=== PATIENT | male | born 1940 | race Caucasian/White ===

== ENCOUNTER 2016-10-26 09:54 | Inpatient (IN) | payer MEDICARE, BC ==
--- NOTE | ~2016-10-26 | OP ---
Record Of Operation [facility] [address] [place]. [address] NAME: HAMILTON NGUYEN JR : 38 STATUS : ADM IN PAT#: [id number] AGE: 76 ADM/REG DATE : 10/26/16 MR#: [id number] REPORT SERV DATE: 10/26/16 DICTATED BY: STEVEN PANG DATE: 10/26/16 REPORT STATUS : Draft TRANSCRIBED BY: BETTY DATE: 10/26/16 DATE OF PROCEDURE: 10/26/2016 TIME: 1600 hours. PROCEDURE: Ultrasound guided right-sided Thoracentesis INDICATION: Large right-sided pleural effusion. PROCEDURE DULSER: Steven Pang PA-C. CONSENT: Consent was obtained from the patient prior to the procedure. Diagnostic and therapeutic indications for thoracentesis were discussed as well as risks including life- threatening bleeding, pneumothorax, and even the possible necessity of chest tube placement. Benefits and alternatives were explained at length. Prior to the procedure, imaging studies were reviewed with Dr. Robbins who agreed with the indication to proceed with thoracentesis. PROCEDURE SUMMARY: A time out was performed verifying correct patient, procedure, site, and positioning. The patient's right side was prepped and draped in a sterile manner using chlorhexidine scrub after the appropriate level was percussed and confirmed by ultrasound. U/S images were obtained and placed within the chart. 2% lidocaine with epinephrine was then used to anesthetize the region. A finder needle was then used to aspirate dorinda-colored fluid. A 10-blade scalpel was then used to make a small incision. The thoracentesis catheter was then threaded into the pleural space without difficulty. The patient had 1100 mL of dorinda-colored fluid removed. No immediate complications were noted during the procedure. A post-procedure chest x-ray is pending at the time of this dictation. The fluid will be sent for several studies. There was difficulty aspirating the complete volume of the pleural effusion raising the question of possible lung entrapment. ESTIMATED BLOOD LOSS: Minimal. JOSUÉ/BETTY Steven Pang PA-C / [id number] CC: Margarita Arguelles DO
--- NOTE | ~2016-10-26 | DS ---
Discharge Summary [facility] [address] [facility] [address] [place]. [address] NAME: HAMILTON NGUYEN JR : 39 STATUS : ADM IN [facility]#: [id number] AGE: 76 ADM/REG DATE : 10/26/16 MR#: [id number] REPORT SERV DATE: 10/30/16 DICTATED BY: Javier MARTINEZ DATE: 10/30/16 REPORT STATUS : Draft TRANSCRIBED BY: MODL DATE: 10/30/16 ADMISSION DATE: 10/26/2016 DISCHARGE DATE: 10/30/2016 DIAGNOSES: At time of this interim summary: 1. Acute on chronic hypoxic respiratory failure. 2. Complex pleural effusion on the right status post chest tube placement and infusion of thrombolytics. 3. Pneumonia, present on admission, resolving. 4. Chronic obstructive pulmonary disease. 5. Oropharyngeal dysphagia with current Dobbhoff tube placement. CONSULTS: Pulmonology. PROCEDURES: Thoracentesis on the right as well as chest tube placement on the right. Intra- pulmonary space thrombolytics x2. BRIEF HOSPITAL COURSE: This is a 76-year-old male patient with complex pleural effusion, was admitted with hypoxic respiratory failure. Started on broad-spectrum antimicrobial therapy. Seen on admission by the Pulmonary Service, and initially underwent ultrasound-guided thoracentesis with removal of 1.1 L of dorinda-colored fluid. Studies showed that this was exudative, as result Cardiothoracic Surgery was involved. Their recommendations were for placement of a chest tube and likely pleural-based thrombolytics to enhance drainage. The patient did undergo ultrasound-guided chest tube placement, and had roughly 2 L of additional fluid removed. Since chest tube was placed, he has had pleural space probable lytics administered on two separate occasions with enhancement of the drainage procedure. The patient's lab work has steadily improved. Unfortunately because of an old CVA and his currently ill-state, the patient did fail a bedside swallow evaluation. As a result, the Dobbhoff tube has been placed and tube feedings have been started tentatively planning to reassess the swallowing the first of the week on either Wednesday or Wednesday, and hopefully he will be able to tolerate p.o. at that time. The patient had previously been on Plavix. The Plavix was held for his chest tube placement and thoracentesis. In the interim, we will continue to hold Plavix until it is clear that he either can swallow and take p.o. or that he may need a feeding tube placed, and if he needs a PEG tube, we will place that before restarting Plavix. The patient continues to be followed closely by the Pulmonary Service and the Hospitalist Service, and will be managed by another member of the hospitalist team for this week and with ongoing comanagement from Pulmonology. LABORATORY DATA: Significant lab work at the time of this interim summary shows a white count of 14.7, and decreasing; hemoglobin is 13.9; and platelets are 189. Sodium 143, potassium is 5.4, BUN is 45, and creatinine is 0.98. Further pathologic studies from his fluid are pending as well as the culture data. These will need to be reassessed when available. Discharge Summary [address] [place]. [address] NAME: HAMILTON NGUYEN JR : 38 STATUS : ADM IN [facility]#: [id number] AGE: 76 ADM/REG DATE : 10/26/16 MR#: [id number] REPORT SERV DATE: 10/30/16 DICTATED BY: Javier MARTINEZ DATE: 10/30/16 REPORT STATUS : Draft TRANSCRIBED BY: BETTY DATE: 10/30/16 [facility]/BETTY Javier Martinez M.D. / [id number] CC: Margarita Arguelles DO
--- NOTE | ~2016-10-26 | OP ---
Record Of Operation [facility] [address] [address] NAME: HAMILTON NGUYEN JR : 38 STATUS : ADM IN PAT#: [id number] AGE: 76 ADM/REG DATE : 10/26/16 MR#: [id number] REPORT SERV DATE: 11/02/16 DICTATED BY: STEVEN PANG DATE: 11/02/16 REPORT STATUS : Draft TRANSCRIBED BY: MODL DATE: 11/02/16 DATE OF PROCEDURE: 11/02/2016 TIME: Noon. PROCEDURE: Intrapleural instillation of fibrinolytics INDICATION: Empyema/Loculated pleural effusion/Pleurx PROCEDURE TEST PILOT: Nick Pang PA-C CONSENT: Consent was obtained from the patient prior to the procedure. The indication for instillation of intrapleural fibrinolytics was discussed with the patient. Risks including pain, life-threatening bleeding, hemoptysis and possible surgical intervention were reviewed. Benefits and alternatives were explained at length. The patient voiced understanding and wished to proceed. Preceding the procedure, imaging studies were reviewed with Dr. Sanchez who agreed with the indication to proceed with lytic therapy. PROCEDURE SUMMARY: Prior to starting the procedure, a time out was performed verifying correct patient, procedure, site, and positioning. Please note that 10 mg of tPA in 50 mL of normal saline as well as 5 mg of DNAse were prepared in sterile fashion by Pharmacy and brought to the bedside. The patient was then positioned accordingly and a sterile field was created. The chest tube connections were prepped in a sterile manner. The tPA and the DNAse were then injected into the chest tube. No immediate complications were noted during the procedure. The chest tube will be placed back on suction in 2 hours with a portable chest x-ray to follow. ESTIMATED BLOOD LOSS: None. GBS/MODL Steven Pang PA-C / [id number] CC: MD Richardson Fowler II, DO
--- NOTE | ~2016-10-26 | CN ---
Consultation Report [address] [place]. [address] NAME: MIRZA MACE JR : 39 STATUS : ADM IN PAT#: [id number] AGE: 76 ADM/REG DATE : 10/26/16 MR#: [id number] REPORT SERV DATE: 11/05/16 DICTATED BY: SALMA LONDON DATE: 11/05/16 REPORT STATUS : Draft TRANSCRIBED BY: MODL DATE: 11/05/16 CONSULTATION DATE OF CONSULTATION: HISTORY OF PRESENT ILLNESS: Mirza Mace is a 76-year-old male whom we were asked to evaluate for gastrostomy tube placement. This patient was hospitalized with a CVA in 09/2016. He went to [facility], developed pneumonia, and was admitted with respiratory failure, with parapneumonic effusion. He had a chest tube in and then yesterday had right thoracotomy with decortication. The patient has not seen a GI doctor before. He cannot give me any history as he is on a ventilator. His is in the room in a wheelchair. I spoke to the daughter. PAST MEDICAL HISTORY: 1. COPD. 2. Coronary artery disease with a history of coronary bypass grafting. 3. CVA. 4. Congestive heart failure. 5. Obstructive sleep apnea. 6. Hypertension. 7. TIA. 8. Gout. 9. Alcohol abuse, but last drink prior to 09/2016. PAST SURGICAL HISTORY: 1. Coronary artery bypass grafting. 2. Bilateral cataract repair. SOCIAL HISTORY: He smoked in the distant past. He has a daughter who lives out of town. He is . ALLERGIES: SULFA. FAMILY HISTORY: Noncontributory. CURRENT MEDICATIONS: Protonix, melatonin, vitamin C, Levophed has been tapered off this morning, Dulcolax, MiraLAX, Lovenox, Proventil, Seroquel, Percocet, aspirin, Toprol, Lipitor, and Zosyn. REVIEW OF SYSTEMS: Unable to obtain. PHYSICAL EXAMINATION: GENERAL: He is obese. He is on the ventilator. He is afebrile. Consultation Report [address] [place]. [address] NAME: MIRZA MACE JR : 38 STATUS : ADM IN [facility]#: [id number] AGE: 76 ADM/REG DATE : 10/26/16 MR#: [id number] REPORT SERV DATE: 11/05/16 DICTATED BY: MICHELLESALMA Malone DATE: 11/05/16 REPORT STATUS : Draft TRANSCRIBED BY: MODMacey DATE: 11/05/16 VITAL SIGNS: Stable. LUNGS: Clear. CARDIOVASCULAR: Revealed normal S1, S2. ABDOMEN: Revealed active bowel sounds. Soft, nontender. LABORATORY DATA: Basic metabolic profile today normal except for sodium 152, chloride 119, BUN 42, glucose 136. White blood cell count 15,600, hemoglobin 12.7, platelet count 187,000. INR 1.4 on 11/04. IMPRESSION: 1. Dysphagia, on ventilator. 2. Cerebrovascular accident, 09/2016. 3. Pneumonia with parapneumonic effusion. RECOMMENDATIONS: We will proceed with a PEG tomorrow. I have discussed the risks, benefits, alternatives with his daughter, Judith, who agrees to proceed. Thanks for allowing us to assist in his care. /BETTY Salma London M.D. / [id number] CC: Margarita Arguelles DO James Headrick Jr., M.D.
--- NOTE | ~2016-10-26 | OP ---
Record Of Operation [facility] [address] [place]. [address] NAME: HAMILTON NGUYEN JR : 38 STATUS : ADM IN PAT#: [id number] AGE: 76 ADM/REG DATE : 10/26/16 MR#: [id number] REPORT SERV DATE: 10/29/16 DICTATED BY: STEVEN PANG DATE: 10/29/16 REPORT STATUS : Draft TRANSCRIBED BY: MODL DATE: 10/29/16 DATE OF PROCEDURE: 10/29/2016 TIME: 0945 hours. PROCEDURE: Intrapleural instillation of fibrinolytics. INDICATION: Loculated pleural effusion. PROCEDURE JET WIPER: Steven Pang PA-C. CONSENT: Consent was obtained from the patient prior to the procedure. The indication for instillation of intrapleural fibrinolytics was discussed with the patient. Risks including pain, life-threatening bleeding, hemoptysis and possible surgical intervention were reviewed. Benefits and alternatives were explained at length. The patient voiced understanding and wished to proceed. Preceding the procedure, imaging studies were reviewed with Dr. Robbins, who agreed with the indication to proceed with lytic therapy. PROCEDURE SUMMARY: Prior to starting the procedure, a time out was performed verifying correct patient, procedure, site, and positioning 10 mg of tPA and 5 mg of DNAse were prepared in a sterile fashion by Pharmacy and brought to the bedside. The patient was then positioned accordingly and a sterile field was created. Chest tube connections were prepped and accessed in a sterile manner. The tPA and DNAse were then injected into the chest tube. No immediate complications were noted during the procedure. The chest tube will be placed back on suction in 2 hours with a portable chest x-ray to follow. ESTIMATED BLOOD LOSS: None. GBS/MODL Steven Pang PA-C / [id number] CC: Maragrita Arguelles DO
--- NOTE | ~2016-10-26 | CN ---
Consultation Report [facility] [address] [place]. [address] NAME: MIRZA MACE JR : 38 STATUS : ADM IN PAT#: [id number] AGE: 76 ADM/REG DATE : 10/26/16 MR#: [id number] REPORT SERV DATE: 10/26/16 DICTATED BY: STEVEN PANG DATE: 10/26/16 REPORT STATUS : Draft TRANSCRIBED BY: MODL DATE: 10/26/16 DATE OF CONSULTATION: 10/26/2016 DICTATED BY: ZOHRA Sullivan CHIEF COMPLAINT: Shortness of breath and hypoxemia. HISTORY OF PRESENT ILLNESS: Mr. Mirza Mace is a morbidly obese 76-year-old, white male with a past medical history significant for recent CVA, asthma, COPD, obstructive sleep apnea with CPAP compliance and coronary artery disease, who presents to [facility] with complaints of worsening shortness of breath and hypoxemia. It should be noted that the patient was hospitalized as recently as three to four weeks ago for concerns related to an acute stroke. The patient has had a difficult interim course. Mr. Mace is aphasic and as such, the majority of the following information is garnered from the chart review. It does not appear that the patient is currently followed by a student life advisor. His medication list does show that he takes Singulair and has been previously prescribed DuoNebs and Spiriva. He apparently was a heavy smoker, smoking two packs a day. The patient does have known obstructive sleep apnea and is compliant with CPAP therapy. The patient is unable to quantify his exercise tolerance currently. Again, the patient was hospitalized on 10/05/2016 with complaints of shortness of breath. There were complaints of a productive cough during this time as well. He was eventually seen by Neurology service for concerns with acute stroke. He was eventually discharged to a rehab facility after being treated for hypoxemic respiratory failure, diastolic heart failure as well as an exacerbation of COPD. More recently, the patient has had worsening shortness of breath and hypoxemia and as such presented to [facility] for further assessment. Currently, the patient is in the IMCU. He is exhibiting some increased work of breathing. He is coughing some. He is requiring a decent amount of oxygen with an FiO2 of 70%. The patient does have known coronary artery disease. He denies any current chest pain. In regard to constitutional symptoms, by report he has had no recent fever or chills. He has had no recent vomiting. PAST MEDICAL HISTORY: 1. CVA. 2. COPD/asthma. 3. Coronary artery disease. 4. Obesity. 5. Hypertension. 6. Obstructive sleep apnea with CPAP compliance. 7. Aphasia. Consultation Report [facility] [id number] [place]. [address] NAME: MIRZA MACE JR : 38 STATUS : ADM IN [facility]#: [id number] AGE: 76 ADM/REG DATE : 10/26/16 MR#: [id number] REPORT SERV DATE: 10/26/16 DICTATED BY: STEVEN PANG DATE: 10/26/16 REPORT STATUS : Draft TRANSCRIBED BY: BETTY DATE: 10/26/16 PAST SURGICAL HISTORY: 1. CABG. 2. Cataract surgery. FAMILY HISTORY: There is no family history of lung disease. SOCIAL HISTORY: The patient is . He and his live at [facility]. He has a daughter who is the [id number] and is very active in the patient's healthcare. He previously worked as an environmental health supervisor component assembler. TOBACCO/ALCOHOL: As previously mentioned, the patient has been a heavy smoker in the past smoking upwards of two packs a day. MEDICATIONS: 1. Acetaminophen. 2. DuoNebs. 3. Tekturna 150 mg. 4. Allopurinol 100 mg. 5. Amlodipine 10 mg. 6. Atorvastatin 40 mg. 7. Bumex 1 mg. 8. Clopidogrel 75 mg. 9. Avodart 0.5 mg. 10.Metoprolol 100 mg. 11.Montelukast 10 mg. 12.Omeprazole 20 mg. 13.Spiriva. ALLERGIES: THE PATIENT HAS KNOWN ALLERGY TO SULFA AND NIFEDIPINE. REVIEW OF SYSTEMS: A complete review of systems was performed with pertinent positives and negatives contained within the body of the HPI. PHYSICAL EXAMINATION: VITAL SIGNS: Blood pressure is 105/64, heart rate 108, T-max is 97.8, respiratory rate is 18, SpO2 is 94% on Vapotherm 70%. GENERAL: The patient is a pleasant, well-nourished/well-developed male who is not currently exhibiting any signs of acute distress. Skin: Skin with appropriate texture and turgor. No rashes, lesions, or ulcers. Nails are clear without cyanosis or clubbing. HEENT: Head: Skull is normocephalic/atraumatic. Facies symmetric. No masses or lesions. Eyes: Sclera anicteric, conjunctiva pink without exudates. Extra ocular movements intact. Pupils are equal, round, reactive to light. Ears: Auricles and tragus without pain to palpation. Hearing is grossly intact. Consultation Report [facility] [address] [place]. [address] NAME: MIRZA MACE JR : 38 STATUS : ADM IN PAT#: [id number] AGE: 76 ADM/REG DATE : 10/26/16 MR#: [id number] REPORT SERV DATE: 10/26/16 DICTATED BY: STEVEN PANG DATE: 10/26/16 REPORT STATUS : Draft TRANSCRIBED BY: BETTY DATE: 10/26/16 Nose: Bilateral nasal patency. Sinuses without tenderness upon palpation. Throat: Dentition. Lips, oral mucosa, tongue, palate, and pharynx pink and moist without lesions. Uvula rises equally on phonation. Tongue midline without deviation. NECK: Neck supple. Trachea midline. No cervical lymphadenopathy appreciated. THORAX/LUNGS: Thorax is symmetric with equal chest rise. Very diminished breath sounds in the right. No rales, wheezes, rhonchi CARDIOVASCULAR: Regular rate and rhythm. No murmurs, rubs, or gallops. Anterior chest without thrills, heaves, or lifts. ABDOMEN: Soft. Non-distended, non-tender. Active bowel sounds in all four quadrants. No hepatosplenomegaly noted. PERIPHERAL VASCULAR: No edema. No varicosities, stasis changes, open sores, ulcerations, or phlebitis. 2+ pulses in radial and dorsalis pedis. MUSCULOSKELETAL: Full AROM and PROM in all joints. No evidence of erythema, deformity, or crepitus. NEUROLOGIC: CN II - XII grossly intact. Good muscle bulk and tone bilaterally. Strength 5/5 throughout. PSYCHIATRIC: Patient demonstrates good judgment and insight. Pt is A&O x 3. ACCESSORY DATA: [place] [address]. Procalcitonin is 0.16, creatinine is 1.97, BNP is 175.1, troponins positive at 0.32. Arterial blood gas reveals pH 7.48, PaCO2 of 23, PaO2 of 70, and a bicarb of 16.8 on 44%. IMAGING: Chest x-ray reveals a large right pleural effusion. IMPRESSION: 1. Acute hypoxemic respiratory failure. 2. Right pleural effusion-suspect parapneumonic with possible component of lung entrapment. 3. Pneumonia. 4. CVA. 5. Chronic obstructive pulmonary disease and asthma. 6. Obstructive sleep apnea with CPAP compliance. PLAN: 1. At this time, in regard to the patient's hypoxemic respiratory failure, we will initiate Vapotherm therapy. We will also make BiPAP available to him at hour of sleep or for episodes of increased work of breathing. Ultimately, he needs his code status further clarified. We will attempt to speak with [id number] and clarify this. 2. In regard to the patient's right pleural effusion, we will plan for a bedside thoracentesis. We will send the fluid for the appropriate studies. Certainly, this effusion has been there long enough to have some degree of lung entrapment. We will attempt to obtain a CT scan after the thoracentesis. 3. In regard to the patient's pneumonia, he has been placed on healthcare-acquired coverage. White blood cell count is noted to be very elevated. Procalcitonins are negative. Consultation Report [address] [address] NAME: MIRZA MACE JR : 38 STATUS : ADM IN [facility]#: [id number] AGE: 76 ADM/REG DATE : 10/26/16 MR#: [id number] REPORT SERV DATE: 10/26/16 DICTATED BY: STEVEN PANG DATE: 10/26/16 REPORT STATUS : Draft TRANSCRIBED BY: MODMacey DATE: 10/26/16 4. In regard to the patient's COPD and asthma, he has been given a single dose of IV Solu- Medrol. We will also place him on a full armamentarium of nebulized medications. 5. In regard to the patient's obstructive sleep apnea, again, we will attempt to talk to their family, have them bring in the home unit once he stabilizes. Again, BiPAP will be made available to him at hour of sleep. The aforementioned impression and plan has been discussed with Dr. Robbins who will follow further recommendations. We thank you for this consult and look forward to participating in the care of Mr. Mirza Mace. GBS/MODL Steven Pang PA-C / [id number] CC: Margarita Arguelles DO
--- NOTE | ~2016-10-26 | CN ---
Consultation Report [facility] [address] [place]. [address] NAME: HAMILTON NGUYEN JR : 39 STATUS : ADM IN PAT#: [id number] AGE: 76 ADM/REG DATE : 10/26/16 MR#: [id number] REPORT SERV DATE: 11/11/16 DICTATED BY: LIBRA GARCIA DATE: 11/10/16 REPORT STATUS : Draft TRANSCRIBED BY: MODL DATE: 11/10/16 CONSULTATION DATE OF CONSULTATION: 11/10/2016 TIME: 11:20 a.m. REASON FOR CONSULTATION: Acute kidney injury. ASSESSMENT: Acute kidney injury. 76-year-old male with multiple comorbidities status post VATS procedure for loculated right pleural effusion complicated by non-STEMI and cardiogenic shock with marked reduction in ejection fraction and now remains ventilator dependent. In addition, he has developed ischemia to his right lower extremity. Previously comorbidity of CVA with dysphagia and status post PEG tube placement at this admission. He is currently maxed out on vasopressin and on high-dose Levophed and no plans for cardiac intervention in related to his underlying ischemic cardiomyopathy. PLAN: Plan is discussed with Dr. Hodges. The patient is overall extremely poor candidate for any formal renal replacement therapy. Unlikely to tolerate ENAMEL BURNER or intermittent dialysis at this point, and overall prognosis looks extremely poor considering his multiple comorbidities. Cardiology has in fact recommended palliative care and comfort care. From my perspective, at this point, we will continue to monitor the patient, but doubt if we have any options to treat him at this time and his mortality rate is extremely high. HISTORY OF PRESENT ILLNESS: History is obtained from records and available. He is an unfortunate 76-year-old male, who was admitted to the hospital on 10/26/2016 with increasing hypoxemia related to what appeared to be right-sided loculated parapneumonic pleural effusion with an elevation in white count, ongoing dysphagia, and inability to swallow. We felt he likely had a parapneumonic effusion in relation to ongoing aspiration pneumonia. He was then felt that considering his overall status that he would require PEG tube placement, which was subsequently done during this admission. In addition on 11/04/2016, he underwent bronchoscopy, right thoracoscopy, and decortication. PEG tube was also placed on 11/06/2016. His clinical course; however, deteriorated further during his hospitalization and he developed what appeared to be type 2 IA and demand ischemia perioperatively and he has had a progressive downhill course. The patient is currently oligoanuric. PAST MEDICAL HISTORY: Significant for coronary artery disease, post bypass surgery. Sleep apnea, COPD, obesity, right-sided pleural effusion, hypertension, and CVA as described. ALLERGIES: INCLUDE; SULFA DRUGS WELL PROCARDIA. HOME MEDICATIONS: Include; aspirin, Lipitor, Plavix, Avodart, folic acid, guaifenesin, amlodipine, Flonase, Bumex, magnesium, Tylenol, and indapamide. REVIEW OF SYSTEMS: Consultation Report [facility] [address] [place]. [address] NAME: HAMILTON NGUYEN JR : 39 STATUS : ADM IN [facility]#: [id number] AGE: 76 ADM/REG DATE : 10/26/16 MR#: [id number] REPORT SERV DATE: 11/11/16 DICTATED BY: LIBRA GARCIA DATE: 11/10/16 REPORT STATUS : Draft TRANSCRIBED BY: BETTY DATE: 11/10/16 As per the HPI. PHYSICAL EXAMINATION: GENERAL: He is an obese male, in no acute distress. Minimal sedation at this time. VITAL SIGNS: Blood pressure is 90/40, heart rate is 113, afebrile. HEENT: He is orally intubated. Pupil right-sided dilated, minimal response to the left side. He has about 2 mm with no response. NECK: His trachea is central. There is no supraclavicular adenopathy. No carotid bruits heard. JVD is elevated. Air entry is equal bilaterally. CHEST: Clear to percussion and auscultation. Right-sided chest tube is noted. HEART: S1 and S2. [place] beat is not displaced. No rub. ABDOMEN: PEG tube in place. Mild distention. No hepatosplenomegaly. No tenderness, guarding, or rebound. Bowel sounds are normal. EXTREMITIES: His right foot is ischemic and cold. No dorsalis pedis, posterior tibial pulses noted. Mottling of the skin is also described suggesting of an embolic event. Left foot is warm. NEUROLOGIC: The patient neurologically is unresponsive. LABORATORY DATA: His lab work shows him to have sodium 152, potassium 5.3, chloride 119, CO2 of 21, BUN 99, creatinine 3.51, and magnesium 3.2. Hemoglobin 11.7, hematocrit 39.1. White count 30.9, platelets 122,000. ADDENDUM: He is receiving free water through his feeding tube. MG/MODL Libra Garcia M.D. / [id number] CC: Margarita Arguelles DO
--- NOTE | ~2016-10-26 | OP ---
Record Of Operation [facility] [address] [place]. [address] NAME: HAMILTON NGUYEN JR : 39 STATUS : ADM IN PAT#: [id number] AGE: 76 ADM/REG DATE : 10/26/16 MR#: [id number] REPORT SERV DATE: 11/04/16 DICTATED BY: LETY RUANO JR. DATE: 11/04/16 REPORT STATUS : Draft TRANSCRIBED BY: MODL DATE: 11/04/16 DATE OF PROCEDURE: 11/04/2016 PREOPERATIVE DIAGNOSES: Right parapneumonic effusion versus empyema, history of recent stroke, chronic obstructive pulmonary disease with past smoking history with significant past history of unknown packs-year history, previous coronary bypass surgery, obesity, and obstructive sleep apnea, aspiration, and aphasia. POSTOPERATIVE DIAGNOSES: Right parapneumonic effusion versus empyema, history of recent stroke, chronic obstructive pulmonary disease with past smoking history with significant past history of unknown packs-year history, previous coronary bypass surgery, obesity, and obstructive sleep apnea, aspiration, and aphasia. NAME OF OPERATION: Bronchoscopy, right thoracoscopy with complete decortication. SURGEON: Lety Ruano M.D. RESIDENT SURGEON: Dr. Marko Navarro. CAR RENTAL AGENCY MANAGER: Franki Fairbanks. ANESTHESIA: General endotracheal. FINDINGS: The patient was noted to have a loculated parapneumonic effusion versus empyema. We were able to get good reexpansion of all three lobes of the lung. The fluid was sent for cultures. Initially during the case, the patient was hypertensive followed by periods of hypotension and EKG changes. It is unclear whether the patient does have a myocardial infarction. Surgery was limited and we used a single-lumen endotracheal tube given his poor prognosis and complex medical conditions. The patient was taken back to the intensive care unit and intubated on inotropic support. DETAILS OF OPERATION: After adequate general anesthesia, the patient was intubated with a single-lumen endotracheal tube. The patient was not very responsive preoperatively. A bronchoscopy was performed noting mucous secretions. There was no contraindications to proceeding on with surgery. A left-sided double-lumen endotracheal tube was not placed given the patient's critically ill status. Preoperatively this was discussed an extensive amount of time with the family. They felt they still wanted all the measures including intubation, trach, and feeding tube. The patient was then positioned in the left lateral decubitus position with the right chest prepped and draped in a routine sterile fashion. A small incision was made overlying the lower intercostal space. Through the single incision site, the chest was entered. The loculated gelatinous material was evacuated. Decortication was performed. We were able to get the lung fully mobilized with good re- expansion. Towards the end of the case, the patient began having some hypotension requiring inotropic support. There were some EKG changes. We quickly placed a 32-Montserr[place]ian chest tube and closed the single trocar incision site. The patient was placed back in the supine position where a central line was placed by Anesthesia. He was transported to the intensive Record Of [address] [address] NAME: HAMILTON NGUYEN JR : 39 STATUS : ADM IN PAT#: [id number] AGE: 76 ADM/REG DATE : 10/26/16 MR#: [id number] REPORT SERV DATE: 11/04/16 DICTATED BY: LETY RUANO JR. DATE: 11/04/16 REPORT STATUS : Draft TRANSCRIBED BY: BETTY DATE: 11/04/16 care unit in critical condition. JACKIE/BETTY Lety Ruano Jr., M.D. / [id number] CC: MD Richardson Fowler II, DO
--- NOTE | ~2016-10-26 | OP ---
Record Of Operation [facility] [address] [place]. [address] NAME: HAMILTON MACE JR : 39 STATUS : ADM IN [facility]#: [id number] AGE: 76 ADM/REG DATE : 10/26/16 MR#: [id number] REPORT SERV DATE: 11/04/16 DICTATED BY: LETY RUANO JR. DATE: 11/04/16 REPORT STATUS : Draft TRANSCRIBED BY: MODL DATE: 11/04/16 DATE OF PROCEDURE: 11/04/2016 ATTENDING: Dr. Thomas Ruano. RESIDENT SURGEON: Dr. Tez Navarro. PROCEDURE PERFORMED: Right subclavian central venous line placement. PREPROCEDURE DIAGNOSES: 1. Loculated right parapneumonic effusion. 2. Hypoxic respiratory failure. 3. Myocardial infarction. 4. CVA. 5. Dysphagia. POSTPROCEDURE DIAGNOSES: 1. Loculated right parapneumonic effusion. 2. Hypoxic respiratory failure. 3. Myocardial infarction. 4. CVA. 5. Dysphagia. ANESTHESIA: General. COMPLICATIONS: None. BLOOD LOSS: Minimal. BRIEF HISTORY: Mr. Mace is a 76-year-old male with multiple medical comorbidities who recently had a CVA, causing him what appeared to be chronic aspiration. He has had multiple bouts of pneumonia and now presented with a significant parapneumonic loculated effusion. After a significant discussion with the family about the risks associated with his possible surgery including but not limited to worsening with stroke, myocardial infarction, and possibly even . The family wished to proceed. During the course of the operation, the patient became hypotensive and showed signs of ST elevation. At this time, the procedure was then finished and a central line was placed for durable central venous access. DESCRIPTION OF THE PROCEDURE: The procedure was done emergently secondary to the patient's medical state. The patient was already intubated and sedated. The right chest was prepped and draped in a sterile fashion. A needle was inserted under the clavicle on the right side and aspirated dark red blood was withdrawn. The wire was inserted into the needle and the needle was withdrawn. We then incised the skin around the wire to dilate up the tract. I then placed the central line over a wire and removed the wire. All ports were aspirated and flushed with saline. The line was then secured in place using a silk suture. The placement was confirmed using the chest x-ray. There were no complications. The patient tolerated Record Of Operation [address] [address] NAME: HAMILTON MACE JR : 39 STATUS : ADM IN [facility]#: [id number] AGE: 76 ADM/REG DATE : 10/26/16 MR#: [id number] REPORT SERV DATE: 11/04/16 DICTATED BY: LETY RUANO JR. DATE: 11/04/16 REPORT STATUS : Draft TRANSCRIBED BY: BETTY DATE: 11/04/16 the procedure well. JACKIE/BETTY Lety Ruano Jr., M.D. / [id number] CC: Javier Martinez M.D.
--- NOTE | ~2016-10-26 | DS ---
Discharge Summary [facility] [address] [place]. [address] NAME: HAMILTON NGUYEN JR : 39 STATUS : DIS IN PAT#: [id number] AGE: 76 ADM/REG DATE : 10/26/16 MR#: [id number] REPORT SERV DATE: 11/12/16 DICTATED BY: MERLE HODGES IV DATE: 11/11/16 REPORT STATUS : Draft TRANSCRIBED BY: MODMacey DATE: 11/11/16 ADMISSION DATE: 10/26/2016 DISCHARGE DATE: 11/11/2016 DIAGNOSES AT THE TIME OF : 1. Cardiogenic and septic shock. 2. Non ST-elevation myocardial infarction with known coronary artery disease. 3. Postoperative respiratory failure. 4. Acute kidney injury. 5. Aspiration pneumonia with complicated parapneumonic effusion. 6. Chronic obstructive pulmonary disease. 7. Cerebrovascular disease with stroke and dysphagia. 8. Hypertension. 9. Obstructive sleep apnea. CONSULTANTS: 1. Pulmonary on 10/22/2016. 2. Cardiothoracic Surgery on 10/27/2016. 3. Critical Care Medicine on 11/04/2016. 4. Cardiology on 11/10/2016. 5. Nephrology on 11/10/2016. 6. Gastroenterology who performed a PEG on 11/06/2016. PROCEDURES: The patient underwent thoracentesis on 10/26/2016, had a percutaneous chest tube placed on 10/28/2016, had DNA and tPA installations on 10/29/2016, 10/30/2016, and 11/02/2016, had video-assisted thoracoscopy and on the right chest with right central line placement on 11/04/2016, had an echocardiogram on 11/10/2016, had a PEG tube placed on 11/06/2016, and had an echocardiogram performed on 11/10/2016, also had a bedside swallow evaluation on 10/29/2016. BRIEF HOSPITAL COURSE: The patient was admitted to the Hospitalist Service on 10/26/2016 with increased shortness of breath and findings consistent with aspiration pneumonia. He had a complicated parapneumonic effusion. The patient underwent thoracentesis with incomplete removal of the fluid. This was consistent with an exudate based on LDH and total protein; however, cultures were negative as was cytology. The patient was empirically placed on vancomycin and Zosyn. He had a chest tube placement with incomplete drainage on 10/28/2016. Cardiothoracic Surgery had been consulted around this period of time as well and followed the patient. In an attempt to avoid surgery the patient underwent a tPA and DNase instillation on 10/29/2016, 10/30/2016, and 11/02/2016 with incomplete resolution of the pleural effusion. Because of this the patient ultimately underwent thoracoscopy on 11/04/2016. Postoperatively the patient remained on mechanical ventilator and was transferred to the ICU from the hospitalist to the Critical Care Service. The patient had the vancomycin transiently discontinued and remained on Zosyn throughout this period of time. In the ICU the patient failed weaning attempts. He did require Levophed postoperatively, although this was able to be weaned and he was on and off Levophed for the next three days at low doses. He continued to have a low-grade temperature. All cultures Discharge Summary [address] [address] NAME: HAMILTON NGUYEN JR : 39 STATUS : DIS IN PAT#: [id number] AGE: 76 ADM/REG DATE : 10/26/16 MR#: [id number] REPORT SERV DATE: 11/12/16 DICTATED BY: MERLE HODGES IV DATE: 11/11/16 REPORT STATUS : Draft TRANSCRIBED BY: BETTY DATE: 11/11/16 including blood, pleural fluid, and tracheal aspirate throughout the hospitalization were negative. There is a low-grade fever. Additional blood cultures obtained on 11/06/2016 and 11/09/2016, which again had no growth. Because of low-grade fever, vancomycin was added back to his medical regimen on 11/06/2016. On the night of the the patient had dramatic drop in his blood pressure requiring reinstitution of vasopressor agents. An EKG obtained at that time demonstrated ST depression in the anterolateral leads. A troponin was obtained which was now elevated at 10.8. Heparin drip was started. Cardiology was consulted. They felt because of his multiple comorbid illnesses and morbidities he was not a candidate for intervention or cardiac catheterization. He was empirically placed on heparin. He transiently had some improvement in his blood pressure; however, had further elevation in his troponin to 25.4. There had been multiple discussions with family members prior to this event about the overall poor prognosis. During this time the patient had a rise in his creatinine which had been normal and had risen minimally, but now evaristo significantly to 2.15 then into the 3, 4, and ultimately at 5.48. He had worsening urine output with this as well. Renal was consulted; however, felt the patient was not a candidate for renal replacement therapy and just support should be provided. Conferences were held with family members and the patient was made a DNR with plans for no escalation of therapy beyond the current vasopressor agents. It was felt that if the patient survives the night that therapy should be withdrawn on the morning of the when family was available. The patient continued to have worsening blood pressures and oxygenation overnight, and finally at 7:15 on 11/11/2016. Family was made aware and were present and in the room. The patient was pronounced by Nursing Services. NM/MODL Merle Hodges IV, M.D. / [id number] CC: Margarita Arguelles DO
--- NOTE | ~2016-10-26 | OP ---
Record Of Operation [facility] [address] [place]. [address] NAME: HAMILTON NGUYEN JR : 39 STATUS : ADM IN PAT#: [id number] AGE: 76 ADM/REG DATE : 10/26/16 MR#: [id number] REPORT SERV DATE: 10/30/16 DICTATED BY: STEVEN PANG DATE: 10/30/16 REPORT STATUS : Draft TRANSCRIBED BY: MODL DATE: 10/30/16 DATE OF PROCEDURE: 10/30/2016 TIME: 0945 hours. PROCEDURE: Intrapleural instillation of fibrinolytics. INDICATION: Loculated pleural effusion. PROCEDURE SENIOR TECHNICAL WRITER: Steven Pang PA-C CONSENT: Consent was obtained from the patient prior to the procedure. The indication for instillation of intrapleural fibrinolytics was discussed with the patient. Risks including pain, life-threatening bleeding, hemoptysis and possible surgical intervention were reviewed. Benefits and alternatives were explained at length. The patient voiced understanding and wished to proceed. Preceding the procedure, imaging studies were reviewed with Dr. Robbins, who agreed with the indication to proceed with lytic therapy. PROCEDURAL SUMMARY: Prior to starting the procedure, a time out was performed verifying correct patient, procedure, site, and positioning. 10 mg of tPA in 50 mL of normal saline in a Luer-Uday syringe and 5 mg of DNAse in 50 cc of normal saline in a Luer-Uday syringe was prepared in a sterile fashion by Pharmacy and brought to the bedside. The patient was then positioned accordingly and a sterile field was created. Chest tube connections were prepped and draped. The tPA and DNAse were then injected into the chest tube. No immediate complications were noted during the procedure. The chest tube will be placed back in suction in 2 hours with a portable chest x-ray to follow. ESTIMATED BLOOD LOSS: None. GBS/MODL Steven Pang PA-C / [id number] CC: Margarita Arguelles DO
--- NOTE | ~2016-10-26 | OP ---
Record Of Operation [facility] [address] [place]. [address] NAME: HAMILTON NGUYEN JR : 39 STATUS : ADM IN PAT#: [id number] AGE: 76 ADM/REG DATE : 10/26/16 MR#: [id number] REPORT SERV DATE: 11/06/16 DICTATED BY: JORGE LUIS PALOMINO DATE: 11/06/16 REPORT STATUS : Draft TRANSCRIBED BY: MODL DATE: 11/06/16 DATE OF PROCEDURE: 11/06/2016 INPATIENT PROCEDURE NOTE REASON FOR PROCEDURE: Inability to eat or take in adequate nutrition. PROCEDURE PERFORMED: EGD and PEG tube placement. DESCRIPTION OF PROCEDURE: Monitored anesthesia care was utilized for sedation. The patient tolerated the procedure well and there were no immediate complications. Estimated blood loss was minimal. Procedure was performed without difficulty. After the patient was adequately sedated, the adult endoscope was passed alongside the patient's endotracheal tube into the esophagus without difficulty. Brief examination of the esophagus revealed no abnormalities within the stomach. There was scattered erosions and evidence of old heme but no large ulcerations or other abnormalities. Examination of the duodenum was likewise unremarkable. The scope was then withdrawn into the stomach and it was insufflated. Lights were dimmed in the room and a light reflex was seen just under the patient's left ribcage near his xiphoid process. The site was confirmed with palpation and was seen to correspond with an area along the body of the stomach. The site was then marked and was sterilized with chlorhexidine and Betadine swabs. The area was then draped in a sterile fashion and a 22-gauge needle was used to numb the area where the incision will be made. A small scalpel blade was then used to make a small incision over the area that had been marked. A trocar was then passed through the abdominal wall and into the gastric lumen was visualized by the endoscopically. This being in good position, there was only mild oozing of blood at the site. A wire was then passed through the trocar after removal of the needle and was captured with a snare on the inside of the gastric lumen. The wire was then brought up through the patient's mouth and a 20-Greenlandic PEG tube was advanced over the wire down through the patient's stomach and then through the abdominal wall. The bumper was pulled so that it was opposed up against the gastric wall with the external markings at 3 cm and external bumper was then placed along with a clamp and the procedure was finished. IMPRESSION: Successful placement of a 20-Greenlandic [employer] PEG tube and external markings at 3. RECOMMENDATIONS: 1. We would keep the patient n.p.o. for 4 hours and then allow water and medications to be given through the PEG tube. The patient can be allowed to have tube feeds starting in 24 hours. 2. Please clean PEG tube site daily and bandages can be removed after two weeks. [facility] Record Of [place] [address] [place]. [address] NAME: HAMILTON NGUYEN JR : 38 STATUS : ADM IN [facility]#: [id number] AGE: 76 ADM/REG DATE : 10/26/16 MR#: [id number] REPORT SERV DATE: 11/06/16 DICTATED BY: JORGE LUIS PALOMINO DATE: 11/06/16 REPORT STATUS : Draft TRANSCRIBED BY: MODL DATE: 11/06/16 Jorge Luis Palomino MD / [id number] CC: Margarita Arguelles DO
--- NOTE | ~2016-10-26 | CN ---
Consultation Report [facility] [address] [place]. [address] NAME: HAMILTON NGUYEN JR : 38 STATUS : ADM IN PAT#: [id number] AGE: 76 ADM/REG DATE : 10/26/16 MR#: [id number] REPORT SERV DATE: 11/03/16 DICTATED BY: COLLEEN DAS DATE: 11/02/16 REPORT STATUS : Draft TRANSCRIBED BY: MODMacey DATE: 11/02/16 DATE OF CONSULTATION: 11/02/2016 REASON FOR CONSULTATION: Right loculated pleural effusion. BRIEF HISTORY: This is a 76-year-old white male who suffered a cerebrovascular accident in September of this year. Prior to that, he resided at [facility]. The patient has a past medical history of asthma, COPD, obstructive sleep apnea, as well as coronary artery disease. Following his stroke in September, he represented with progressive shortness of breath, and a CT of the chest was obtained which demonstrated an extensive right pleural effusion. This was drained via thoracentesis and he had a residual loculated component given his recent cerebrovascular accident. The family and the power of supervisor composing room elected to do conservative treatment with a chest tube placement and tPA therapy. He had a followup CT of the chest that showed some resolution of the loculated component with the catheter not in a good position for the remainder of the loculation. We were asked to see him in consultation for possible decortication. PAST MEDICAL HISTORY: Significant for cerebrovascular accident, COPD, asthma, coronary artery disease, obesity, hypertension, obstructive sleep apnea, and aphasia. PAST SURGICAL HISTORY: Significant for coronary artery bypass grafting as well as cataract surgery. He denies any family history of any lung cancers. SOCIAL HISTORY: The patient is , and prior to cerebrovascular accident, he resided at [facility] with his . He has a past smoking history of smoking up to 2 packs per day and has discontinued tobacco abuse. Daughter is his power of supervisor composing room. ALLERGIES: INCLUDE SULFA ANTIBIOTICS WELL PROCARDIA. HOME MEDICATIONS: Include aspirin, Lipitor, Plavix, Avodart, folic acid, guaifenesin, Singulair, metoprolol, omeprazole, DuoNeb, Spiriva, MiraLAX, glucosamine, allopurinol, vitamin D, amlodipine, Flonase, Bumex, Dulcolax, magnesium, Tylenol, indapamide, Astelin, Kiki, and Zyrtec. REVIEW OF SYSTEMS: Significant for shortness of breath and aphasia. Secondary to his aphasia, his history was obtained from his family. PHYSICAL EXAMINATION: VITAL SIGNS: Oxygen saturation 96% on 5 L. Blood pressure 146/47, temperature 98.3, heart rate 110, weight 111 kg, height 6 feet. GENERAL: This is a 76-year-old white male who is alert and oriented, in no acute distress. HEENT: Normocephalic, atraumatic. Pupils equal, round, and react to light. Ears, nose, and throat without lesions or exudate. NECK: Supple. No lymphadenopathy. No JVD. Trachea midline. No obvious goiter. Consultation Report [address] [place]. [address] NAME: HAMILTON NGUYEN JR : 38 STATUS : ADM IN [facility]#: [id number] AGE: 76 ADM/REG DATE : 10/26/16 MR#: [id number] REPORT SERV DATE: 11/03/16 DICTATED BY: COLLEEN DAS DATE: 11/02/16 REPORT STATUS : Draft TRANSCRIBED BY: BETTY DATE: 11/02/16 CHEST: Symmetrical with no obvious chest wall deformities. There is scarring from previous sternotomy. RESPIRATORY: Decreased breath sounds throughout with scattered rhonchi, greater on the right than the left. ABDOMEN: Obese, soft, nontender, nondistended. Positive bowel sounds in all 4 quadrants. No hepatosplenomegaly. : The patient has a catheter placed. EXTREMITIES: No cyanosis or edema. 2+ pulses bilaterally. MUSCULOSKELETAL: No obvious kyphosis or scoliosis. NEUROLOGIC: He has aphasia from recent cerebrovascular accident. SKIN: Warm and dry with normal turgor. No obvious breakdown or lesions noted. PSYCHIATRIC: Normal mood and affect. DATA: CT of the chest performed on 10/31/2016 showing there has been a 50% improvement in the pleural evacuation with aeration of the right lung. There is still some residual right pleural base and a loculated upper lung fluid collection. The PleurX tube is in good position, with the lower fluid collection, re-treatment maybe worthwhile, upper fluid collection may require a separate access. LABORATORIES: Laboratories dated 11/02/2016: Sodium 149, potassium 4.3, BUN 48, creatinine 0.98, glucose 150. White blood cell count 24.6, hemoglobin 16, hematocrit 49.3, platelet count 167. Pleural fluid from 10/28/2016: AFB, no acid-fast bacilli seen. Culture no growth after 3 days. Gram stain finals, no white blood cell seen. No microorganisms seen. PROBLEM LIST: 1. Continued loculated right pleural effusion, status post lytic therapy. 2. History of CVA with aphasia. 3. Obesity. 4. Coronary artery disease, status post CABG. 5. Obstructive sleep apnea. 6. Chronic obstructive pulmonary disease. IMPRESSION AND PLAN: This is a 76-year-old male. He recently suffered a cerebrovascular accident and aphasia who has a loculated right pleural effusion that has failed lytic therapy, likely secondary to chronic aspiration. We are asked to see him for possible decortication I discussed with his power of supervisor composing room and this would likely benefit him, and however, given his debilitated state as well as the effect from his recent cerebrovascular accident, he might require prolonged mechanical ventilation, tracheostomy, as well as currently needs a PEG tube placed for chronic aspiration to prevent further pneumonia, as well as there is also elevated risk for cerebrovascular accident or myocardial infarction. Given his past medical history, his power of supervisor composing room would like to speak with his as well as have them treat his right loculated pleural effusion with another treatment of lytic therapy prior to committing to surgical approach. She did verbalize understanding of the elevated risks and the need to not withdraw care directly after surgery if he does require prolonged mechanical ventilation or tracheostomy. We will follow along this week, and if Consultation Report [address] [address] NAME: HAMILTON NGUYEN JR : 38 STATUS : ADM IN [facility]#: [id number] AGE: 76 ADM/REG DATE : 10/26/16 MR#: [id number] REPORT SERV DATE: 11/03/16 DICTATED BY: COLLEEN DAS DATE: 11/02/16 REPORT STATUS : Draft TRANSCRIBED BY: BETTY DATE: 11/02/16 family and others involved agree to move forward with a right thoracoscopy with decortication, then we will make further planning at that time. Dictated for Neftaly Ruano Jr. AM/BETTY Colleen Das NP / [id number] CC: MD Richardson Fowler II, DO
--- NOTE | ~2016-10-26 | CN ---
Consultation Report [facility] [address] [place]. [address] NAME: MIRZA MACE JR : 38 STATUS : ADM IN PAT#: [id number] AGE: 76 ADM/REG DATE : 10/26/16 MR#: [id number] REPORT SERV DATE: 11/10/16 DICTATED BY: JORGE LUIS HENDRICKSON DATE: 11/10/16 REPORT STATUS : Draft TRANSCRIBED BY: MODL DATE: 11/10/16 CARDIOVASCULAR CONSULTATION DATE OF CONSULTATION: 11/10/2016 INDICATION: Myocardial infarction. HISTORY OF PRESENT ILLNESS: Mr. Mirza Mace is a 76-year-old man with a complex recent medical history. He has a number of underlying medical conditions including COPD, recent alcohol abuse, and coronary artery disease with previous bypass grafting. He has a history of chronic diastolic congestive heart failure. He was admitted to [facility] with a recent stroke. He was discharged to [facility] to complete rehab. He was having difficulty swallowing. He is readmitted with acute respiratory failure in the setting of a presumed aspiration pneumonia. He had a large pleural effusion requiring surgical intervention. He has remained hypoxic and on the ventilator, unable to wean. In this setting, he has had progressive multi-system organ decline. He has had worsening renal insufficiency, worsening hypotension requiring the addition of pressors. The situation seemed to worsen about 18 hours ago. In the setting, laboratory studies showed an elevated troponin of 10. His EKG showed diffuse ST depressions consistent with global ischemia. His pressor requirement significantly increased. His temperature increased to 100.4 and his procalcitonin increased as well indicating some degree of underlying infection/sepsis. I was consulted overnight about the possibility of emergent coronary intervention. At that time and currently, I thought that was not appropriate for this patient given his multiple comorbidities, possible contributor of septic shock to his clinical picture. His troponin already was elevated to 10 and his EKG was much more consistent with global ischemia then focal stenosis which would be amenable to PCI. PAST MEDICAL HISTORY: 1. Pneumonia. 2. Obstructive sleep apnea. 3. COPD. 4. Coronary artery disease with previous CABG. 5. History of recent stroke. SOCIAL HISTORY: He is a former smoker. Up until September, he drank hard liquor fairly often in moderate to large quantities. REVIEW OF SYSTEMS: Review of systems could not be obtained because the patient was intubated and sedated. ALLERGIES: INCLUDE SULFA AND PROCARDIA. MEDICATIONS ON ADMISSION: Include Tylenol, nebulizer treatments, Tekturna, Norvasc 10 mg Consultation Report [facility] [address] [place]. [address] NAME: MIRZA MACE JR : 38 STATUS : ADM IN PAT#: [id number] AGE: 76 ADM/REG DATE : 10/26/16 MR#: [id number] REPORT SERV DATE: 11/10/16 DICTATED BY: JORGE LUIS HENDRICKSON DATE: 11/10/16 REPORT STATUS : Draft TRANSCRIBED BY: MODMacey DATE: 11/10/16 daily, aspirin 81 mg daily, Lipitor, folate, glucosamine, Levaquin, Toprol-XL 100 mg daily, Dulcolax, Bumex, Plavix, Singulair, Prilosec, MiraLax, Spiriva. PHYSICAL EXAMINATION: VITAL SIGNS: Blood pressure is 110/80, heart rate of 120 and regular, respiratory rate of 18 on the ventilator, FiO2 of 60%. GENERAL: This is an elderly man, sedated and intubated, currently not responsive. HEENT: Anicteric. No xanthelasma. Lips without cyanosis. NECK: No JVD. Carotids 2+ and symmetric. No carotid bruits. LUNGS: CTA bilaterally. No wheezes or rhonchi. No accessory muscle use. COR: Tachycardic. Normal S1 and S2. ABD: Soft, nontender, nondistended. Normal bowel sounds. No abdominal bruits. EXT: No clubbing, cyanosis or edema 2+ and symmetric distal pulses. SKIN: Warm. Dry. No venous stasis changes. MS: No kyphosis. NEURO/PSYCH: Oriented x3. No anxiety or depression. LABORATORY STUDIES: Troponin of 10 from last evening. White count of 30.9, hematocrit of 39, platelets of 122. Potassium of 5.3, sodium 152, creatinine up to 3.51, lactate of 6.4. EK-lead EKG shows diffuse 2-[address] depressions in the anterior and lateral precordial leads. There are mild less than [address] elevations, lead V3. There are mild ST depressions in aVL and lead I. Although he has some baseline ST depressions in these areas and previous EKGs which I reviewed this admission, these changes appear acute and more dramatic. IMPRESSION: This is a 76-year-old man with multiple medical problems who now presents with a non-ST elevation OK as a result of septic shock and aspiration pneumonia with acute respiratory failure. I see no role for urgent coronary intervention in this setting for the reasons that I have mentioned above. I am concerned with his progressive renal failure, progressive respiratory failure, and now some element of cardiogenic shock that the patient will likely not survive this hospital admission. I recommend consideration of Palliative Care, DNR status, comfort measures, and Hospice. LAZARO/MODL Jorge Luis Hendrickson M.D. / [id number] CC: Javier Martinez M.D. Richardson Malik,
--- NOTE | ~2016-10-26 | HP ---
History And Physical [facility] [address] [facility] [place]. [address] NAME: HAMILTON NGUYEN JR : 39 STATUS : ADM IN PAT#: [id number] AGE: 76 ADM/REG DATE : 10/26/16 MR#: [id number] REPORT SERV DATE: 10/26/16 DICTATED BY: ALTON HICKEY DATE: 10/26/16 REPORT STATUS : Draft TRANSCRIBED BY: MODL DATE: 10/26/16 DATE OF ADMISSION: 10/26/2016 CHIEF COMPLAINT: Shortness of breath and hypoxemia. HISTORY OF PRESENT ILLNESS: The patient is a relatively complex 76-year-old white male. He was just discharged from [facility] on 10/09/2016 following a four-day stay. At that time, he had an acute episode of hypoxic respiratory failure, thought to be multifactorial to include a COPD exacerbation as well as diastolic congestive heart failure. In addition, at that time, while he was admitted, he suffered an acute left MCA stroke with aphasia. He also had a history of alcohol abuse and was placed on withdrawal protocol. Ultimately, he was discharged to [facility]. He did have some issues with dysphagia, he was placed on thickened liquids, and he is currently undergoing rehab with physical therapy, speech therapy, occupational therapy while there, I did speak with his daughter. The patient continues to be aphasic, so it is difficult to communicate with him, but his daughter was readily available via phone call. She states that he was doing rehab, but that cognitively he has not been the same since he had the stroke and also he still he is still aphasic. He has trouble with word finding and often times cannot follow simple commands. Apparently, the patient was in his usual state of health until last when he developed increasing need for oxygen and what she describes as a cough. No documented fevers. Actually, had a chest x-ray and some labs done on Wednesday. He was told he has pneumonia, he was placed on Levaquin by Dr. Malik. He had some diminished O2 saturation at that time, and his oxygen was increased. He continued to decline over the course of the weekend requiring more oxygen, and his oxygen needs today became so significant, he was transferred to [facility]. Here, he was dyspneic, wheezing, and coughing. He can provide little in the way of history. All this history was obtained via the family. There have been no documented fevers, no new lower extremity edema, but he certainly less short of breath when he sits upright. PAST MEDICAL HISTORY: Positive for, 1. COPD. 2. CAD with history of CABG. 3. Recent left MCA stroke with resultant aphasia and dysphagia, requiring thickened liquids. 4. Diastolic congestive heart failure, obesity. 5. SALTY, on CPAP. 6. Hypertension. 7. TIA in the past. 8. Gout. 9. Alcohol abuse, but last drink was prior to 10/05/2016. He currently has no access to alcohol. PAST SURGICAL HISTORY: He has had a CABG and bilateral cataract repair. SOCIAL HISTORY: He quit smoking about 27 years ago. He smoked two packs per day previous to that for 20 years. He previously abused alcohol in the form of bourbon and liquor, however, History And Physical [address] [place]. [address] NAME: HAMILTON NGUYEN JR : 38 STATUS : ADM IN [facility]#: [id number] AGE: 76 ADM/REG DATE : 10/26/16 MR#: [id number] REPORT SERV DATE: 10/26/16 DICTATED BY: ALTON HICKEY DATE: 10/26/16 REPORT STATUS : Draft TRANSCRIBED BY: BETTY DATE: 10/26/16 he has not had a drink since prior to 10/05/2016. He is and his is wheelchair bound. He has a daughter who lives out of town. ALLERGIES: SULFA. FAMILY HISTORY: His mother had an VT. His mother and father both had coronary disease and also had a sister with coronary disease. HOME MEDICATIONS: Reviewed and attached. REVIEW OF SYSTEMS: A full 10-point review of systems was obtained to the best my abilities. Pertinent positives are mentioned in the HPI. These were all obtained via the daughter. PHYSICAL EXAMINATION: VITAL SIGNS: He is currently about 94% on the 50% Ventimask. Last blood pressure was 100/50, prior to that it was 120s over 70s. He did have one low blood pressure, but that was after receiving 60 mg of IV Lasix, temperature is 96.0, pulse was 100 to 110, respiratory rate currently is 25, sats are 94% on 50% Ventimask. GENERAL: Morbidly obese, white male. HEENT: Normocephalic, atraumatic. Pupils equal, round, and reactive. Throat is clear. HEART: Distant S1 and S2. LUNGS: He has diffuse expiratory wheezing and rhonchorous breath sounds. He is diminished on the right base in the right mid lung. ABDOMEN: Soft, nondistended. He has positive bowel sounds. EXTREMITIES: Warm and dry. He has no peripheral edema. Pulses are 2+ at the feet. SKIN: Otherwise intact. LABORATORY AND X-RAY: H and H 14 and 43, white count 26,000, platelets are 300. EKG shows sinus tach. Coags are normal. ABG 7.48/23/70. Lactate is 2.1. BNP is 175. Chest x-ray shows a large right pleural effusion and right base consolidation. Albumin is 2.4. LFTs are otherwise normal. Coags are normal. ASSESSMENT/PLAN: 1. Hypoxemic respiratory failure, likely secondary to ongoing large right-sided pleural effusion, likely complicated by pneumonia, certainly cannot rule out parapneumonic effusion. Did consider heart failure as a cause of his pleural effusion, however, he has a white count of 26,000. He has coughing, wheezing, and rhonchorous breath sounds, this sounds more consistent with pneumonia. I am going to treat him empirically with Zosyn and vancomycin. I did choose to cover for aspiration given his history of dysphagia and recent stroke. I am going to culture his blood and sputum. Check a procalcitonin. Place him on DuoNebs q.4 hours, O2 Pulmicort. We will place him on some IV steroids given his history of chronic obstructive pulmonary disease. I have contacted Pulmonary consultants. They are going to see him upstairs in the IMCU and tap his effusion. I suspect by tapping his pleural effusion his respiratory status History And Physical [address] [address] NAME: HAMILTON NGUYEN : 38 STATUS : ADM IN [facility]#: [id number] AGE: 76 ADM/REG DATE : 10/26/16 MR#: [id number] REPORT SERV DATE: 10/26/16 DICTATED BY: ALTON HICKEY DATE: 10/26/16 REPORT STATUS : Draft TRANSCRIBED BY: BETTY DATE: 10/26/16 will greatly improve. After he is tapped, then we will send him for CT scan of his chest to further evaluate this area to decide if he needs additional procedures and to look for evidence of pneumonia. I do not think he will tolerate any additional diuresis at this time. His blood pressure dropped to the one dose of Lasix and he does have evidence of an acute kidney injury suggesting that he is likely volume depleted. 2. Acute kidney injury. The patient's baseline creatinine usually runs around 1.2 to 1.6. He is 1.97 today. I am going to hold his Bumex for now. We will see how he looks tomorrow. His blood pressure is a little borderline, anyway I do not think he needs additional diuresis, he got some in the ER. We will reassess things tomorrow. We will give him some gentle fluids since he is going to be n.p.o. I would like to avoid giving him anything by mouth in case he has had an episode of aspiration. 3. Recent stroke with resultant aphasia as well as some dysphagia. Certainly will prove to create some communication difficulties. I have his daughter's number that has been written on the chart. We will need to communicate with her. This seems to be his baseline now. 4. Previous alcohol abuse. He has not had a drink since prior to the 10/05/2016 as he currently has no access. 5. History of gout. Allopurinol. 6. History of diastolic heart failure. See hypoxemic respiratory failure, likely secondary to ongoing large right-sided pleural effusion, likely complicated by pneumonia, certainly cannot rule out parapneumonic effusion. 7. Deep venous thrombosis prophylaxis. Subcutaneous Lovenox. We will hold today because he is going to get a tap and then restart tomorrow. 8. Obstructive sleep apnea, on CPAP. We may need to put him on some CPAP here depending on how he responds over the next several hours. 9. Disposition. Pending above aforementioned plan and workup. CECILY/BETTY Alton Hickey M.D. / [id number] CC: Margarita Arguelles GREGORY JOSEPH
[~2016-10-26 09:54] MED LIST: 8 HOUR650 MG PO; ADVIL PO; ALLEGRA180 PO; ASTELIN NAS; AVODART PO; COMBIVENT RESPIM4 GM INH; COZAAR100 MG PO; GLUCOSAMINEPO PO; HALF81 PO; INDAPAMIDE1.25 MG PO; NORV10 PO; P20 PO; PRILO PO; PROAIR HFA INH; REFENESEN400 MG PO; SINGULAIR1 PO; SPIRIVA INH; SPIRO25 PO; TEKTUR150 PO; TOPXL100 PO; VOLTAREN1 % TOP; Z100 PO; Z300 PO; ZYRTEC ALLGY10 MG PO
[2016-10-26 10:44] LABS: BASOPHILS 0.1 %; BASOPHILS ABSOLUTE 0.02 10/3/uL (0.0-0.16); EOSINOPHILS 1.5 %; EOSINOPHILS ABSOLUTE 0.41 10/3/uL (0.0-0.53); HEMATOCRIT 42.5 % (40.0-51.0); HEMOGLOBIN 13.9 g/dL (13.6-17.8); IMMATURE GRANULOCYTES 0.8 %; LYMPHOCYTES 4.3 %; LYMPHOCYTES ABSOLUTE 1.15 10/3/uL (0.67-4.30); MEAN CORPUS HGB CONC 32.7 g/dL (32.0-36.0); MEAN CORPUSCULAR HEMOGLOB 29.2 pg (26.0-34.0); MEAN CORPUSCULAR VOLUME 89.3 fL (80-100); MEAN PLATELET VOLUME 10.9 fL (9.2-13.0); MONOCYTES 4.3 %; MONOCYTES ABSOLUTE 1.14 10/3/uL (0.21-1.20); NEUTROPHILS ABSOLUTE 23.62 10/3/uL (2.02-8.40); PLATELET COUNT 300 10/3/uL (150-400); RBC DISTRIBUTION WIDTH 15.6 % (12.0-16.0); RED CELL COUNT 4.76 10/6/uL (4.7-6.1)
[2016-10-26 10:46] LABS: INSTRUMENT SERIAL # 8087; PCO2 (CO2 TENSION) 23 MMHG (35-45); PO2 (O2 TENSION) 70 MMHG (79-93); pH 7.48 (7.37-7.43)
[2016-10-26 10:47] LABS: ALLENS TEST Pos; BE (BASE EXCESS) -4.7 MEQ/L (0 +/- 2.5); CARBOXYHEMOGLOBIN 1.4 % (0-3); DEVICE NC; HCO3 (ACTUAL BICARBONATE) 16.8 MEQ/L (23-27); HEMOBLOGIN CONTENT 14.2 G/DL (14-18); METHEMOGLOBIN 0.1 % (0-3); O2 CONTENT 18.8 VOL% (18-24); OPERATOR ID 32214; SAMPLE Arterial
[2016-10-26 10:48] LABS: ER CBC TAT 0 Hrs 15 Mins; WHITE BLOOD CELLS 26.6 10/3/uL (4.5-10.5)
[2016-10-26 10:49] LABS: IMMATURE GRANULOCYTES ABSOLUTE 0.22 10/3/uL (0.0-0.11); MANUAL DIFF NO %
[2016-10-26 10:56] LABS: A/G RATIO 0.6 (0.7-1.9); ALBUMIN 2.4 G/DL (3.5-5.0); ALKALINE PHOSPHATASE 71 U/L (45-117); BUN (BLOOD UREA NITROGEN) 66 MG/DL (6-23); CALCIUM, SERUM 10.3 MG/DL (8.5-10.4); CHLORIDE, SERUM 109 MMOL/L (96-112); CO2 (CARBON DIOXIDE) 23 MMOL/L (24-34); CREATININE 1.97 MG/DL (0.70-1.30); GFR AFRICAN AMERICAN 37 ML/MIN (>=60); GFR NON AFRICAN AMERICAN 32 ML/MIN (>=60); GLOBULIN 4.3 G/DL (2.5-4.1); GLUCOSE, SERUM 117 MG/DL (60-99); LACTATE 2.1 MMOL/L (0.3-2.4); POTASSIUM, SERUM 5.2 MMOL/L (3.5-5.3); SGOT(AST) 19 U/L (5-40); SGPT(ALT) 36 U/L (5-65); SODIUM, SERUM 144 MMOL/L (135-148); TOTAL BILIRUBIN 0.9 MG/DL (0-1.2); TOTAL PROTEIN 6.7 G/DL (6.0-8.5)
[2016-10-26 11:06] LABS: BAND NEUTROPHILS 6 %; EOSINOPHILS 2 %; EOSINOPHILS ABSOLUTE (CALC) 0.53 10/3/uL (0.0-0.53); ER DIFF TAT 0 Hrs 33 Mins; LYMPHOCYTES 3 %; MONOCYTES 4 %; MONOCYTES ABSOLUTE (CALC) 1.06 10/3/uL (0.21-1.20); NEUTROPHILS ABSOLUTE (CALC) 24.21 10/3/uL (2.02-8.40); PLATELET ESTIMATE ADQ (ADEQUATE); RBC MORPHOLOGY NORM (NORMAL); SEGMENTED NEUTROPHIL (0) 85 %; TOTAL NUCLEATED CELLS 100
[2016-10-26 11:48] LABS: INTERNATIONAL NORMAL RATI 1.4 UNITS (-); PARTIAL THROMBO TIME 31.7 SEC (22.5-37.2); PROTIME (NOT ORD) 16.9 SEC (12.0-14.5)
[2016-10-26] MEDS ORDERED: ASAB PO (12:14)
[2016-10-26] MEDS ORDERED: LIPITOR40 PO (12:15)
[2016-10-26] MEDS ORDERED: AVODART PO (12:15)
[2016-10-26] MEDS ORDERED: PLAVIX PO (12:15)
[2016-10-26] MEDS ORDERED: SINGULAIR1 PO (12:16)
[2016-10-26] MEDS ORDERED: FOLIC PO (12:16)
[2016-10-26] MEDS ORDERED: REFENESEN400 MG PO (12:16)
[2016-10-26] MEDS ORDERED: TOPXL100 PO (12:17)
[2016-10-26] MEDS ORDERED: PRILO PO (12:17)
[2016-10-26] MEDS ORDERED: DUONEB INH (12:19)
[2016-10-26] MEDS ORDERED: SPIRIVA INH (12:21)
[2016-10-26] MEDS ORDERED: 8 HOUR650 MG PO (12:21)
[2016-10-26] MEDS ORDERED: MIRALAX POWDER1 PKT PO (12:22)
[2016-10-26] MEDS ORDERED: GLUCOSAMINEPO PO (12:22)
[2016-10-26 12:23] LABS: ASCORBIC ACID (UR NOT ORDER) 20 (NEG); BILIRUBIN, URINE NEGATIVE (NEG); ER URINALYSIS TAT 0 Hrs 15 Mins; KETONE, URINE NEGATIVE (NEG); LEUKOCYTE ESTERASE(NOT OR NEG (NEG); NITRITE (URINE) NEG (NEG); WBC (NOT ORDERED) (RFLEX) 4 (0-5)
[2016-10-26] MEDS ORDERED: Z100 PO (12:23)
[2016-10-26] MEDS ORDERED: VITD PO (12:24)
[2016-10-26] MEDS ORDERED: TEKTUR150 PO (12:24)
[2016-10-26] MEDS ORDERED: NORV10 PO (12:25)
[2016-10-26] MEDS ORDERED: FLONASE NAS (12:25)
[2016-10-26] MEDS ORDERED: BUM1 PO (12:26)
[2016-10-26] MEDS ORDERED: LEVAQUIN750 MG PO (12:26)
[2016-10-26] MEDS ORDERED: MOMUD PO (12:27)
[2016-10-26] MEDS ORDERED: BISR PR (12:27)
[2016-10-26] MEDS ORDERED: TESS PO (12:28)
[2016-10-26] MEDS ORDERED: T PO (12:28)
[2016-10-26] MEDS ORDERED: FLEET ENEMA PR (12:28)
[2016-10-26] MEDS ORDERED: INDAPAMIDE1.25 MG PO (12:29)
[2016-10-26] MEDS ORDERED: ASTELIN NAS (12:31)
[2016-10-26] MEDS ORDERED: ALLEGRA180 PO (12:31)
[2016-10-26] MEDS ORDERED: ZYRTEC ALLGY10 MG PO (12:32)
[2016-10-26 13:31] LABS: PROCALCITONIN 0.18 ng/mL (<0.5)
[2016-10-26 15:28] LABS: PHOSPHORUS, SERUM 5.2 MG/DL (2.5-4.5)
[2016-10-26 15:29] LABS: TROPONIN I 0.32 NG/ML (<0.05)
[2016-10-26 16:17] LABS: PROCALCITONIN 0.16 ng/mL (<0.5)
[2016-10-26 17:25] LABS: TOTAL PROTEIN 6.6 G/DL (6.0-8.5)
[2016-10-26 18:20] LABS: GLUCOSE BODY FL (NOT ORD) 108 MG/DL; LDH BODY FLUID (NOT ORD) 367 U/L; PROTEIN BODY FLUID 3.9 G/DL
[2016-10-26 20:33] LABS: BD FL LYMPH (NOT ORD) 57 %; BF BASO (NOT OF) 0 %; BF LARGE MONONUCLEAR 21 %; BODY FLUID EOS (NOT ORD) 0 %; BODY FLUID SEG (NOT ORD) 22 %
[2016-10-26 20:34] LABS: BD FL SOURCE (NOT ORD) PLEURAL
[2016-10-26 20:39] LABS: BF TOTAL CELL CT (NOT ORD 356 /MM3; BODY FLUID RBC (NOT ORD) 10770 /MM3
[2016-10-27 05:54] LABS: HEMATOCRIT 40.5 % (40.0-51.0); HEMOGLOBIN 13.3 g/dL (13.6-17.8); MEAN CORPUS HGB CONC 32.8 g/dL (32.0-36.0); MEAN CORPUSCULAR HEMOGLOB 29.5 pg (26.0-34.0); MEAN CORPUSCULAR VOLUME 89.8 fL (80-100); MEAN PLATELET VOLUME 10.9 fL (9.2-13.0); PLATELET COUNT 255 10/3/uL (150-400); RBC DISTRIBUTION WIDTH 15.9 % (12.0-16.0); RED CELL COUNT 4.51 10/6/uL (4.7-6.1)
[2016-10-27 05:55] LABS: MANUAL DIFF YES %
[2016-10-27 06:13] LABS: BUN (BLOOD UREA NITROGEN) 67 MG/DL (6-23); CALCIUM, SERUM 9.4 MG/DL (8.5-10.4); CHLORIDE, SERUM 112 MMOL/L (96-112); CO2 (CARBON DIOXIDE) 23 MMOL/L (24-34); GFR AFRICAN AMERICAN 47 ML/MIN (>=60); GFR NON AFRICAN AMERICAN 41 ML/MIN (>=60); POTASSIUM, SERUM 4.9 MMOL/L (3.5-5.3); SODIUM, SERUM 146 MMOL/L (135-148)
[2016-10-27 06:14] LABS: GLUCOSE, SERUM 158 MG/DL (60-99); TROPONIN I 0.23 NG/ML (<0.05)
[2016-10-27 06:51] LABS: BAND NEUTROPHILS 11 %; LYMPHOCYTES 1 %; LYMPHOCYTES ABSOLUTE (CALC) 0.17 10/3/uL (0.67-4.30); NEUTROPHILS ABSOLUTE (CALC) 16.83 10/3/uL (2.02-8.40); PLATELET ESTIMATE ADQ (ADEQUATE); SEGMENTED NEUTROPHIL (0) 88 %; TOTAL NUCLEATED CELLS 100
[2016-10-27 06:52] LABS: TOXIC GRANULATION 1+; VACUOLATED NEUTROPHILES OCC
[2016-10-27 06:54] LABS: POIKILOCYTOSIS 1+ (5-10/OIF) (0-5/OIF)
[2016-10-28 05:26] LABS: BASOPHILS 0 %; BASOPHILS ABSOLUTE 0.01 10/3/uL (0.0-0.16); EOSINOPHILS 0.1 %; EOSINOPHILS ABSOLUTE 0.03 10/3/uL (0.0-0.53); HEMATOCRIT 39.2 % (40.0-51.0); HEMOGLOBIN 12.6 g/dL (13.6-17.8); IMMATURE GRANULOCYTES 0.5 %; IMMATURE GRANULOCYTES ABSOLUTE 0.11 10/3/uL (0.0-0.11); LYMPHOCYTES 1.9 %; LYMPHOCYTES ABSOLUTE 0.39 10/3/uL (0.67-4.30); MANUAL DIFF NO %; MEAN CORPUS HGB CONC 32.1 g/dL (32.0-36.0); MEAN CORPUSCULAR HEMOGLOB 28.9 pg (26.0-34.0); MEAN CORPUSCULAR VOLUME 89.9 fL (80-100); MEAN PLATELET VOLUME 10.1 fL (9.2-13.0); MONOCYTES 7.3 %; MONOCYTES ABSOLUTE 1.49 10/3/uL (0.21-1.20); NEUTROPHILS 90.2 %; NEUTROPHILS ABSOLUTE 18.48 10/3/uL (2.02-8.40); PLATELET COUNT 218 10/3/uL (150-400); RBC DISTRIBUTION WIDTH 15.7 % (12.0-16.0); RED CELL COUNT 4.36 10/6/uL (4.7-6.1); WHITE BLOOD CELLS 20.5 10/3/uL (4.5-10.5)
[2016-10-28 05:43] LABS: BUN (BLOOD UREA NITROGEN) 67 MG/DL (6-23); CALCIUM, SERUM 10.1 MG/DL (8.5-10.4); CHLORIDE, SERUM 114 MMOL/L (96-112); CO2 (CARBON DIOXIDE) 21 MMOL/L (24-34); CREATININE 1.44 MG/DL (0.70-1.30); GFR AFRICAN AMERICAN 54 ML/MIN (>=60); GFR NON AFRICAN AMERICAN 47 ML/MIN (>=60); GLUCOSE, SERUM 138 MG/DL (60-99); POTASSIUM, SERUM 4.5 MMOL/L (3.5-5.3); SODIUM, SERUM 145 MMOL/L (135-148)
[2016-10-28 13:16] LABS: INSTRUMENT SERIAL # 35151; pH 7.35 (7.37-7.43)
[2016-10-28 13:17] LABS: SAMPLE PLR
[2016-10-28 16:27] LABS: BODY FLUID TRIGLYCERIDE 32 MG/DL; GLUCOSE BODY FL (NOT ORD) 113 MG/DL; LDH BODY FLUID (NOT ORD) 312 U/L; PROTEIN BODY FLUID 3.5 G/DL
[2016-10-28 17:02] LABS: BD FL LYMPH (NOT ORD) 33 %; BD FL SOURCE (NOT ORD) PLEURAL; BF BASO (NOT OF) 0 %; BF LARGE MONONUCLEAR 29 %; BODY FLUID EOS (NOT ORD) 11 %; BODY FLUID SEG (NOT ORD) 27 %
[2016-10-28 17:46] LABS: BF TOTAL CELL CT (NOT ORD 51 /MM3; BODY FLUID RBC (NOT ORD) 1272 /MM3
[2016-10-29 06:19] LABS: BASOPHILS 0.1 %; BASOPHILS ABSOLUTE 0.01 10/3/uL (0.0-0.16); EOSINOPHILS 2.6 %; EOSINOPHILS ABSOLUTE 0.49 10/3/uL (0.0-0.53); HEMOGLOBIN 12.7 g/dL (13.6-17.8); IMMATURE GRANULOCYTES 0.5 %; IMMATURE GRANULOCYTES ABSOLUTE 0.09 10/3/uL (0.0-0.11); LYMPHOCYTES ABSOLUTE 0.37 10/3/uL (0.67-4.30); MEAN CORPUSCULAR HEMOGLOB 28.1 pg (26.0-34.0); MEAN CORPUSCULAR VOLUME 90.7 fL (80-100); MONOCYTES ABSOLUTE 1.32 10/3/uL (0.21-1.20); NEUTROPHILS 87.8 %; NEUTROPHILS ABSOLUTE 16.69 10/3/uL (2.02-8.40); PLATELET COUNT 209 10/3/uL (150-400); RBC DISTRIBUTION WIDTH 15.6 % (12.0-16.0); RED CELL COUNT 4.52 10/6/uL (4.7-6.1)
[2016-10-29 06:23] LABS: MANUAL DIFF NO %
[2016-10-29 06:25] LABS: CALCIUM, SERUM 10.2 MG/DL (8.5-10.4); CHLORIDE, SERUM 112 MMOL/L (96-112); CO2 (CARBON DIOXIDE) 24 MMOL/L (24-34); CREATININE 1.21 MG/DL (0.70-1.30); GFR AFRICAN AMERICAN 67 ML/MIN (>=60); GFR NON AFRICAN AMERICAN 57 ML/MIN (>=60); SODIUM, SERUM 144 MMOL/L (135-148)
[2016-10-29 06:28] LABS: BUN (BLOOD UREA NITROGEN) 59 MG/DL (6-23); GLUCOSE, SERUM 108 MG/DL (60-99); PHOSPHORUS, SERUM 4.1 MG/DL (2.5-4.5)
[2016-10-29 06:43] LABS: BD FL SOURCE (NOT ORD) PLEURAL
[2016-10-29 06:58] LABS: PROCALCITONIN 0.12 ng/mL (<0.5)
[2016-10-30 04:27] LABS: BASOPHILS 0 %; EOSINOPHILS 2.3 %; EOSINOPHILS ABSOLUTE 0.33 10/3/uL (0.0-0.53); HEMATOCRIT 43.9 % (40.0-51.0); HEMOGLOBIN 13.9 g/dL (13.6-17.8); IMMATURE GRANULOCYTES 0.2 %; IMMATURE GRANULOCYTES ABSOLUTE 0.03 10/3/uL (0.0-0.11); LYMPHOCYTES 5.5 %; LYMPHOCYTES ABSOLUTE 0.81 10/3/uL (0.67-4.30); MEAN CORPUS HGB CONC 31.7 g/dL (32.0-36.0); MEAN CORPUSCULAR HEMOGLOB 28.5 pg (26.0-34.0); MEAN CORPUSCULAR VOLUME 90.1 fL (80-100); MEAN PLATELET VOLUME 10.1 fL (9.2-13.0); MONOCYTES 5.7 %; MONOCYTES ABSOLUTE 0.84 10/3/uL (0.21-1.20); NEUTROPHILS 86.3 %; NEUTROPHILS ABSOLUTE 12.65 10/3/uL (2.02-8.40); PLATELET COUNT 189 10/3/uL (150-400); RBC DISTRIBUTION WIDTH 15.5 % (12.0-16.0); RED CELL COUNT 4.87 10/6/uL (4.7-6.1); WHITE BLOOD CELLS 14.7 10/3/uL (4.5-10.5)
[2016-10-30 04:42] LABS: CALCIUM, SERUM 10.3 MG/DL (8.5-10.4); CHLORIDE, SERUM 111 MMOL/L (96-112); CO2 (CARBON DIOXIDE) 25 MMOL/L (24-34); CREATININE 0.98 MG/DL (0.70-1.30); GFR AFRICAN AMERICAN 86 ML/MIN (>=60); GFR NON AFRICAN AMERICAN 74 ML/MIN (>=60); GLUCOSE, SERUM 108 MG/DL (60-99); MANUAL DIFF NO %; PHOSPHORUS, SERUM 3.8 MG/DL (2.5-4.5); SODIUM, SERUM 143 MMOL/L (135-148)
[2016-10-30 04:49] LABS: BUN (BLOOD UREA NITROGEN) 45 MG/DL (6-23); POTASSIUM, SERUM 5.4 MMOL/L (3.5-5.3)
[2016-10-31 05:16] LABS: BUN (BLOOD UREA NITROGEN) 43 MG/DL (6-23); CALCIUM, SERUM 10.3 MG/DL (8.5-10.4); CHLORIDE, SERUM 111 MMOL/L (96-112); CO2 (CARBON DIOXIDE) 25 MMOL/L (24-34); CREATININE 0.98 MG/DL (0.70-1.30); GFR AFRICAN AMERICAN 86 ML/MIN (>=60); GFR NON AFRICAN AMERICAN 74 ML/MIN (>=60); GLUCOSE, SERUM 123 MG/DL (60-99); SODIUM, SERUM 143 MMOL/L (135-148)
[2016-10-31 05:18] LABS: POTASSIUM, SERUM 5.8 MMOL/L (3.5-5.3)
[2016-10-31 05:19] LABS: HEMATOCRIT 44.5 % (40.0-51.0); HEMOGLOBIN 14.6 g/dL (13.6-17.8); MEAN CORPUS HGB CONC 32.8 g/dL (32.0-36.0); MEAN CORPUSCULAR HEMOGLOB 28.9 pg (26.0-34.0); MEAN CORPUSCULAR VOLUME 87.9 fL (80-100); MEAN PLATELET VOLUME 12.4 fL (9.2-13.0); PLATELET COUNT 194 10/3/uL (150-400); RBC DISTRIBUTION WIDTH 15.7 % (12.0-16.0); RED CELL COUNT 5.06 10/6/uL (4.7-6.1); WHITE BLOOD CELLS 17.8 10/3/uL (4.5-10.5)
[2016-10-31 05:52] LABS: MANUAL DIFF YES %
[2016-10-31 05:53] LABS: BAND NEUTROPHILS 13 %; EOSINOPHILS 2 %; EOSINOPHILS ABSOLUTE (CALC) 0.36 10/3/uL (0.0-0.53); IMMATURE GRANS ABSOLUTE (CALC) 0.18 10/3/uL (0.0-0.11); LYMPHOCYTES 5 %; LYMPHOCYTES ABSOLUTE (CALC) 0.89 10/3/uL (0.67-4.30); METAMYELOCYTES 1 %; MONOCYTES 7 %; MONOCYTES ABSOLUTE (CALC) 1.25 10/3/uL (0.21-1.20); NEUTROPHILS ABSOLUTE (CALC) 15.13 10/3/uL (2.02-8.40); PLATELET ESTIMATE ADQ (ADEQUATE); RBC MORPHOLOGY NORM (NORMAL); SEGMENTED NEUTROPHIL (0) 72 %; TOTAL NUCLEATED CELLS 100
[2016-10-31 14:06] LABS: A/G RATIO 0.5 (0.7-1.9); ALBUMIN 1.8 G/DL (3.5-5.0); ALKALINE PHOSPHATASE 47 U/L (45-117); GLOBULIN 3.6 G/DL (2.5-4.1); SGPT(ALT) 43 U/L (5-65); TOTAL BILIRUBIN 0.7 MG/DL (0-1.2); TOTAL PROTEIN 5.4 G/DL (6.0-8.5)
[2016-10-31 14:07] LABS: SGOT(AST) 60 U/L (5-40)
[2016-11-01 04:39] LABS: HEMATOCRIT 47.2 % (40.0-51.0); HEMOGLOBIN 14.9 g/dL (13.6-17.8); MEAN CORPUS HGB CONC 31.6 g/dL (32.0-36.0); MEAN CORPUSCULAR HEMOGLOB 28.4 pg (26.0-34.0); MEAN CORPUSCULAR VOLUME 90.1 fL (80-100); MEAN PLATELET VOLUME 10.7 fL (9.2-13.0); PLATELET COUNT 174 10/3/uL (150-400); RBC DISTRIBUTION WIDTH 15.7 % (12.0-16.0); RED CELL COUNT 5.24 10/6/uL (4.7-6.1)
[2016-11-01 04:40] LABS: MANUAL DIFF YES %
[2016-11-01 05:06] LABS: BUN (BLOOD UREA NITROGEN) 46 MG/DL (6-23); CALCIUM, SERUM 10.3 MG/DL (8.5-10.4); CHLORIDE, SERUM 111 MMOL/L (96-112); CO2 (CARBON DIOXIDE) 27 MMOL/L (24-34); CREATININE 1.06 MG/DL (0.70-1.30); GFR AFRICAN AMERICAN 78 ML/MIN (>=60); GFR NON AFRICAN AMERICAN 67 ML/MIN (>=60); GLUCOSE, SERUM 102 MG/DL (60-99); SODIUM, SERUM 147 MMOL/L (135-148)
[2016-11-01 05:08] LABS: POTASSIUM, SERUM 4.3 MMOL/L (3.5-5.3)
[2016-11-01 06:26] LABS: BAND NEUTROPHILS 5 %; EOSINOPHILS 12 %; EOSINOPHILS ABSOLUTE (CALC) 2.52 10/3/uL (0.0-0.53); IMMATURE GRANS ABSOLUTE (CALC) 0.21 10/3/uL (0.0-0.11); LYMPHOCYTES 5 %; LYMPHOCYTES ABSOLUTE (CALC) 1.05 10/3/uL (0.67-4.30); METAMYELOCYTES 1 %; MONOCYTES 6 %; MONOCYTES ABSOLUTE (CALC) 1.26 10/3/uL (0.21-1.20); NEUTROPHILS ABSOLUTE (CALC) 15.96 10/3/uL (2.02-8.40); PLATELET ESTIMATE ADQ (ADEQUATE); SEGMENTED NEUTROPHIL (0) 71 %; TOTAL NUCLEATED CELLS 100
[2016-11-01 06:28] LABS: RBC MORPHOLOGY NORM (NORMAL)
[2016-11-02 09:53] LABS: HEMATOCRIT 49.3 % (40.0-51.0); MEAN CORPUS HGB CONC 32.5 g/dL (32.0-36.0); MEAN CORPUSCULAR HEMOGLOB 28.9 pg (26.0-34.0); MEAN CORPUSCULAR VOLUME 89.2 fL (80-100); MEAN PLATELET VOLUME 10.5 fL (9.2-13.0); PLATELET COUNT 167 10/3/uL (150-400); RBC DISTRIBUTION WIDTH 15.8 % (12.0-16.0); RED CELL COUNT 5.53 10/6/uL (4.7-6.1); WHITE BLOOD CELLS 24.6 10/3/uL (4.5-10.5)
[2016-11-02 09:54] LABS: MANUAL DIFF YES %
[2016-11-02 10:02] LABS: BUN (BLOOD UREA NITROGEN) 48 MG/DL (6-23); CALCIUM, SERUM 10.3 MG/DL (8.5-10.4); CHLORIDE, SERUM 113 MMOL/L (96-112); CO2 (CARBON DIOXIDE) 27 MMOL/L (24-34); CREATININE 0.98 MG/DL (0.70-1.30); GFR AFRICAN AMERICAN 86 ML/MIN (>=60); GFR NON AFRICAN AMERICAN 74 ML/MIN (>=60); GLUCOSE, SERUM 150 MG/DL (60-99); PHOSPHORUS, SERUM 2.7 MG/DL (2.5-4.5); POTASSIUM, SERUM 4.3 MMOL/L (3.5-5.3); SODIUM, SERUM 149 MMOL/L (135-148)
[2016-11-02 10:34] LABS: BAND NEUTROPHILS 8 %; EOSINOPHILS 11 %; EOSINOPHILS ABSOLUTE (CALC) 2.71 10/3/uL (0.0-0.53); LYMPHOCYTES 8 %; LYMPHOCYTES ABSOLUTE (CALC) 1.97 10/3/uL (0.67-4.30); MONOCYTES 5 %; MONOCYTES ABSOLUTE (CALC) 1.23 10/3/uL (0.21-1.20); PLATELET ESTIMATE ADQ (ADEQUATE); RBC MORPHOLOGY NORM (NORMAL); SEGMENTED NEUTROPHIL (0) 68 %; TOTAL NUCLEATED CELLS 100
[2016-11-03 09:44] LABS: BUN (BLOOD UREA NITROGEN) 45 MG/DL (6-23); CALCIUM, SERUM 9.8 MG/DL (8.5-10.4); CHLORIDE, SERUM 114 MMOL/L (96-112); CO2 (CARBON DIOXIDE) 23 MMOL/L (24-34); CREATININE 1.02 MG/DL (0.70-1.30); GFR AFRICAN AMERICAN 82 ML/MIN (>=60); GFR NON AFRICAN AMERICAN 71 ML/MIN (>=60); GLUCOSE, SERUM 155 MG/DL (60-99); POTASSIUM, SERUM 3.8 MMOL/L (3.5-5.3); SODIUM, SERUM 149 MMOL/L (135-148)
[2016-11-03 10:26] LABS: BASOPHILS 0.4 %; BASOPHILS ABSOLUTE 0.14 10/3/uL (0.0-0.16); EOSINOPHILS 7.5 %; EOSINOPHILS ABSOLUTE 2.38 10/3/uL (0.0-0.53); HEMATOCRIT 50.3 % (40.0-51.0); HEMOGLOBIN 15.9 g/dL (13.6-17.8); IMMATURE GRANULOCYTES 2.6 %; IMMATURE GRANULOCYTES ABSOLUTE 0.84 10/3/uL (0.0-0.11); LYMPHOCYTES 6.4 %; LYMPHOCYTES ABSOLUTE 2.03 10/3/uL (0.67-4.30); MEAN CORPUS HGB CONC 31.6 g/dL (32.0-36.0); MEAN CORPUSCULAR HEMOGLOB 28.5 pg (26.0-34.0); MEAN CORPUSCULAR VOLUME 90.3 fL (80-100); MEAN PLATELET VOLUME 11.4 fL (9.2-13.0); MONOCYTES 10.1 %; MONOCYTES ABSOLUTE 3.22 10/3/uL (0.21-1.20); NEUTROPHILS ABSOLUTE 23.27 10/3/uL (2.02-8.40); PLATELET COUNT 130 10/3/uL (150-400); RED CELL COUNT 5.57 10/6/uL (4.7-6.1)
[2016-11-03 10:31] LABS: WHITE BLOOD CELLS 31.9 10/3/uL (4.5-10.5)
[2016-11-03 10:51] LABS: EOSINOPHILS 6 %; EOSINOPHILS ABSOLUTE (CALC) 1.91 10/3/uL (0.0-0.53); LYMPHOCYTES 4 %; LYMPHOCYTES ABSOLUTE (CALC) 1.28 10/3/uL (0.67-4.30); MONOCYTES 10 %; MONOCYTES ABSOLUTE (CALC) 3.19 10/3/uL (0.21-1.20); NEUTROPHILS ABSOLUTE (CALC) 25.52 10/3/uL (2.02-8.40); PLATELET ESTIMATE SLT DEC (ADEQUATE); RBC MORPHOLOGY NORM (NORMAL); SEGMENTED NEUTROPHIL (0) 80 %; TOTAL NUCLEATED CELLS 100
[2016-11-03 10:57] LABS: MANUAL DIFF NO %
[2016-11-04 02:04] LABS: BE (BASE EXCESS) 1.8 MEQ/L (0 +/- 2.5); HCO3 (ACTUAL BICARBONATE) 24.8 MEQ/L (23-27); INSTRUMENT SERIAL # 8083; PCO2 (CO2 TENSION) 34 MMHG (35-45); PO2 (O2 TENSION) 82 MMHG (79-93); pH 7.48 (7.37-7.43)
[2016-11-04 02:05] LABS: ALLENS TEST Pos; DEVICE HFNC; METHEMOGLOBIN 0.2 % (0-3); O2 CONTENT 20.1 VOL% (18-24); OPERATOR ID 16469; SAMPLE Arterial
[2016-11-04 08:33] LABS: BASOPHILS 0.2 %; BASOPHILS ABSOLUTE 0.05 10/3/uL (0.0-0.16); EOSINOPHILS 5.6 %; EOSINOPHILS ABSOLUTE 1.16 10/3/uL (0.0-0.53); HEMATOCRIT 43.2 % (40.0-51.0); HEMOGLOBIN 13.6 g/dL (13.6-17.8); IMMATURE GRANULOCYTES 2.4 %; IMMATURE GRANULOCYTES ABSOLUTE 0.49 10/3/uL (0.0-0.11); LYMPHOCYTES 3.4 %; LYMPHOCYTES ABSOLUTE 0.71 10/3/uL (0.67-4.30); MANUAL DIFF NO %; MEAN CORPUS HGB CONC 31.5 g/dL (32.0-36.0); MEAN CORPUSCULAR HEMOGLOB 28.2 pg (26.0-34.0); MEAN CORPUSCULAR VOLUME 89.6 fL (80-100); MEAN PLATELET VOLUME 10.7 fL (9.2-13.0); MONOCYTES 11.2 %; MONOCYTES ABSOLUTE 2.31 10/3/uL (0.21-1.20); NEUTROPHILS 77.2 %; NEUTROPHILS ABSOLUTE 15.93 10/3/uL (2.02-8.40); PLATELET COUNT 216 10/3/uL (150-400); RBC DISTRIBUTION WIDTH 15.9 % (12.0-16.0); RED CELL COUNT 4.82 10/6/uL (4.7-6.1); WHITE BLOOD CELLS 20.7 10/3/uL (4.5-10.5)
[2016-11-04 08:39] LABS: INTERNATIONAL NORMAL RATI 1.4 UNITS (-); PARTIAL THROMBO TIME 27.4 SEC (22.5-37.2); PROTIME (NOT ORD) 16.7 SEC (12.0-14.5)
[2016-11-04 08:50] LABS: BUN (BLOOD UREA NITROGEN) 45 MG/DL (6-23); CALCIUM, SERUM 9.9 MG/DL (8.5-10.4); CHLORIDE, SERUM 116 MMOL/L (96-112); CO2 (CARBON DIOXIDE) 29 MMOL/L (24-34); GFR AFRICAN AMERICAN 100 ML/MIN (>=60); GFR NON AFRICAN AMERICAN 86 ML/MIN (>=60); GLUCOSE, SERUM 132 MG/DL (60-99); POTASSIUM, SERUM 4.4 MMOL/L (3.5-5.3); SODIUM, SERUM 151 MMOL/L (135-148)
[2016-11-04 12:11] LABS: HEMATOCRIT 38.6 % (40.0-51.0); HEMOGLOBIN 11.8 g/dL (13.6-17.8); MANUAL DIFF YES %; MEAN CORPUS HGB CONC 30.6 g/dL (32.0-36.0); MEAN CORPUSCULAR VOLUME 91.7 fL (80-100); MEAN PLATELET VOLUME 10.9 fL (9.2-13.0); PLATELET COUNT 221 10/3/uL (150-400); RED CELL COUNT 4.21 10/6/uL (4.7-6.1); WHITE BLOOD CELLS 23.1 10/3/uL (4.5-10.5)
[2016-11-04 12:31] LABS: BUN (BLOOD UREA NITROGEN) 43 MG/DL (6-23); CALCIUM, SERUM 9.5 MG/DL (8.5-10.4); CHLORIDE, SERUM 118 MMOL/L (96-112); CO2 (CARBON DIOXIDE) 30 MMOL/L (24-34); CREATININE 1.04 MG/DL (0.70-1.30); GFR AFRICAN AMERICAN 80 ML/MIN (>=60); GFR NON AFRICAN AMERICAN 69 ML/MIN (>=60); GLUCOSE, SERUM 157 MG/DL (60-99); SODIUM, SERUM 151 MMOL/L (135-148)
[2016-11-04 13:21] LABS: BAND NEUTROPHILS 3 %; EOSINOPHILS 2 %; EOSINOPHILS ABSOLUTE (CALC) 0.46 10/3/uL (0.0-0.53); IMMATURE GRANS ABSOLUTE (CALC) 0.23 10/3/uL (0.0-0.11); LYMPHOCYTES 9 %; LYMPHOCYTES ABSOLUTE (CALC) 2.08 10/3/uL (0.67-4.30); METAMYELOCYTES 1 %; MONOCYTES 2 %; MONOCYTES ABSOLUTE (CALC) 0.46 10/3/uL (0.21-1.20); NEUTROPHILS ABSOLUTE (CALC) 19.87 10/3/uL (2.02-8.40); PLATELET ESTIMATE ADQ (ADEQUATE); RBC MORPHOLOGY NORM (NORMAL); SEGMENTED NEUTROPHIL (0) 83 %; TOTAL NUCLEATED CELLS 100
[2016-11-04 13:23] LABS: BE (BASE EXCESS) -2.1 MEQ/L (0 +/- 2.5); CARBOXYHEMOGLOBIN 0.4 % (0-3); HCO3 (ACTUAL BICARBONATE) 25.7 MEQ/L (23-27); INSTRUMENT SERIAL # 11843; METHEMOGLOBIN 0.6 % (0-3); MODE CMV; OPERATOR ID 19104; PCO2 (CO2 TENSION) 58 MMHG (35-45); PO2 (O2 TENSION) 79 MMHG (79-93); SAMPLE Arterial; TIDAL VOLUME 700 ML; pH 7.27 (7.37-7.43)
[2016-11-04 18:11] LABS: BASOPHILS 0.3 %; BASOPHILS ABSOLUTE 0.05 10/3/uL (0.0-0.16); EOSINOPHILS 2.3 %; EOSINOPHILS ABSOLUTE 0.37 10/3/uL (0.0-0.53); HEMATOCRIT 40.5 % (40.0-51.0); HEMOGLOBIN 12.8 g/dL (13.6-17.8); IMMATURE GRANULOCYTES 2.4 %; IMMATURE GRANULOCYTES ABSOLUTE 0.39 10/3/uL (0.0-0.11); LYMPHOCYTES 3.7 %; LYMPHOCYTES ABSOLUTE 0.61 10/3/uL (0.67-4.30); MEAN CORPUS HGB CONC 31.6 g/dL (32.0-36.0); MEAN CORPUSCULAR HEMOGLOB 28.3 pg (26.0-34.0); MEAN CORPUSCULAR VOLUME 89.6 fL (80-100); MEAN PLATELET VOLUME 11.2 fL (9.2-13.0); MONOCYTES 9.3 %; MONOCYTES ABSOLUTE 1.53 10/3/uL (0.21-1.20); NEUTROPHILS ABSOLUTE 13.48 10/3/uL (2.02-8.40); PLATELET COUNT 180 10/3/uL (150-400); RBC DISTRIBUTION WIDTH 16.2 % (12.0-16.0); RED CELL COUNT 4.52 10/6/uL (4.7-6.1); WHITE BLOOD CELLS 16.4 10/3/uL (4.5-10.5)
[2016-11-04 18:13] LABS: MANUAL DIFF NO %
[2016-11-04 18:21] LABS: ALBUMIN 2.1 G/DL (3.5-5.0); BUN (BLOOD UREA NITROGEN) 46 MG/DL (6-23); CALCIUM, SERUM 9.6 MG/DL (8.5-10.4); CHLORIDE, SERUM 117 MMOL/L (96-112); CO2 (CARBON DIOXIDE) 25 MMOL/L (24-34); CREATININE 0.98 MG/DL (0.70-1.30); GFR AFRICAN AMERICAN 86 ML/MIN (>=60); GFR NON AFRICAN AMERICAN 74 ML/MIN (>=60); GLUCOSE, SERUM 138 MG/DL (60-99); PHOSPHORUS, SERUM 3.2 MG/DL (2.5-4.5); POTASSIUM, SERUM 4.5 MMOL/L (3.5-5.3); SODIUM, SERUM 151 MMOL/L (135-148)
[2016-11-04 18:35] LABS: BE (BASE EXCESS) 1.1 MEQ/L (0 +/- 2.5); CARBOXYHEMOGLOBIN 0.5 % (0-3); HCO3 (ACTUAL BICARBONATE) 24.5 MEQ/L (23-27); HEMOBLOGIN CONTENT 13.3 G/DL (14-18); INSTRUMENT SERIAL # 35151; METHEMOGLOBIN 0.5 % (0-3); O2 CONTENT 17.8 VOL% (18-24); OPERATOR ID 14382; PCO2 (CO2 TENSION) 35 MMHG (35-45); PO2 (O2 TENSION) 75 MMHG (79-93); SAMPLE Arterial; pH 7.46 (7.37-7.43)
[2016-11-04 18:36] LABS: ALLENS TEST Pos; MODE CMV; TIDAL VOLUME 650 ML
[2016-11-04 21:13] LABS: BE (BASE EXCESS) 1.1 MEQ/L (0 +/- 2.5); CARBOXYHEMOGLOBIN 0.5 % (0-3); HCO3 (ACTUAL BICARBONATE) 24.3 MEQ/L (23-27); HEMOBLOGIN CONTENT 13.9 G/DL (14-18); INSTRUMENT SERIAL # 35151; METHEMOGLOBIN 0.5 % (0-3); MODE CMV; O2 CONTENT 18.6 VOL% (18-24); OPERATOR ID 13861; PCO2 (CO2 TENSION) 34 MMHG (35-45); PO2 (O2 TENSION) 76 MMHG (79-93); SAMPLE Arterial; TIDAL VOLUME 650 ML; pH 7.47 (7.37-7.43)
[2016-11-05 04:15] LABS: BASOPHILS 0.2 %; BASOPHILS ABSOLUTE 0.03 10/3/uL (0.0-0.16); EOSINOPHILS 4.6 %; EOSINOPHILS ABSOLUTE 0.71 10/3/uL (0.0-0.53); HEMATOCRIT 39.8 % (40.0-51.0); HEMOGLOBIN 12.7 g/dL (13.6-17.8); IMMATURE GRANULOCYTES 2.5 %; IMMATURE GRANULOCYTES ABSOLUTE 0.39 10/3/uL (0.0-0.11); LYMPHOCYTES 4.6 %; LYMPHOCYTES ABSOLUTE 0.71 10/3/uL (0.67-4.30); MEAN CORPUS HGB CONC 31.9 g/dL (32.0-36.0); MEAN CORPUSCULAR HEMOGLOB 28.2 pg (26.0-34.0); MEAN CORPUSCULAR VOLUME 88.2 fL (80-100); MEAN PLATELET VOLUME 10.8 fL (9.2-13.0); MONOCYTES 8.8 %; MONOCYTES ABSOLUTE 1.37 10/3/uL (0.21-1.20); NEUTROPHILS 79.3 %; NEUTROPHILS ABSOLUTE 12.38 10/3/uL (2.02-8.40); PLATELET COUNT 187 10/3/uL (150-400); RBC DISTRIBUTION WIDTH 16.5 % (12.0-16.0); RED CELL COUNT 4.51 10/6/uL (4.7-6.1); WHITE BLOOD CELLS 15.6 10/3/uL (4.5-10.5)
[2016-11-05 04:17] LABS: MANUAL DIFF NO %
[2016-11-05 04:29] LABS: BUN (BLOOD UREA NITROGEN) 42 MG/DL (6-23); CALCIUM, SERUM 9.7 MG/DL (8.5-10.4); CHLORIDE, SERUM 119 MMOL/L (96-112); CO2 (CARBON DIOXIDE) 26 MMOL/L (24-34); CREATININE 0.99 MG/DL (0.70-1.30); GFR AFRICAN AMERICAN 85 ML/MIN (>=60); GFR NON AFRICAN AMERICAN 73 ML/MIN (>=60); GLUCOSE, SERUM 136 MG/DL (60-99); PHOSPHORUS, SERUM 3.2 MG/DL (2.5-4.5); POTASSIUM, SERUM 4.4 MMOL/L (3.5-5.3); SODIUM, SERUM 152 MMOL/L (135-148)
[2016-11-06 04:39] LABS: A/G RATIO 0.6 (0.7-1.9); ALBUMIN 1.8 G/DL (3.5-5.0); BUN (BLOOD UREA NITROGEN) 45 MG/DL (6-23); CHLORIDE, SERUM 117 MMOL/L (96-112); CO2 (CARBON DIOXIDE) 26 MMOL/L (24-34); GFR AFRICAN AMERICAN 75 ML/MIN (>=60); GFR NON AFRICAN AMERICAN 64 ML/MIN (>=60); GLOBULIN 2.9 G/DL (2.5-4.1); GLUCOSE, SERUM 136 MG/DL (60-99); PHOSPHORUS, SERUM 3.6 MG/DL (2.5-4.5); POTASSIUM, SERUM 3.8 MMOL/L (3.5-5.3); SGOT(AST) 36 U/L (5-40); SGPT(ALT) 49 U/L (5-65); SODIUM, SERUM 153 MMOL/L (135-148); TOTAL PROTEIN 4.7 G/DL (6.0-8.5)
[2016-11-06 04:42] LABS: ALKALINE PHOSPHATASE 62 U/L (45-117); TOTAL BILIRUBIN 1.5 MG/DL (0-1.2)
[2016-11-06 05:37] LABS: INTERNATIONAL NORMAL RATI 1.6 UNITS (-); PROTIME (NOT ORD) 18.9 SEC (12.0-14.5)
[2016-11-06 07:57] LABS: BASOPHILS 0.2 %; BASOPHILS ABSOLUTE 0.03 10/3/uL (0.0-0.16); EOSINOPHILS 6.8 %; EOSINOPHILS ABSOLUTE 1.14 10/3/uL (0.0-0.53); HEMATOCRIT 39.5 % (40.0-51.0); HEMOGLOBIN 12.5 g/dL (13.6-17.8); IMMATURE GRANULOCYTES 1.4 %; IMMATURE GRANULOCYTES ABSOLUTE 0.24 10/3/uL (0.0-0.11); LYMPHOCYTES ABSOLUTE 0.84 10/3/uL (0.67-4.30); MEAN CORPUS HGB CONC 31.6 g/dL (32.0-36.0); MEAN CORPUSCULAR HEMOGLOB 27.8 pg (26.0-34.0); MEAN CORPUSCULAR VOLUME 87.8 fL (80-100); MEAN PLATELET VOLUME 12.3 fL (9.2-13.0); MONOCYTES 7.5 %; MONOCYTES ABSOLUTE 1.25 10/3/uL (0.21-1.20); NEUTROPHILS 79.1 %; NEUTROPHILS ABSOLUTE 13.23 10/3/uL (2.02-8.40); PLATELET COUNT 178 10/3/uL (150-400); RBC DISTRIBUTION WIDTH 16.6 % (12.0-16.0); WHITE BLOOD CELLS 16.7 10/3/uL (4.5-10.5)
[2016-11-06 07:59] LABS: MANUAL DIFF NO %
[2016-11-06 15:35] LABS: INSTRUMENT SERIAL # 35151; PCO2 (CO2 TENSION) 32 MMHG (35-45)
[2016-11-06 15:36] LABS: BE (BASE EXCESS) 1.4 MEQ/L (0 +/- 2.5); CARBOXYHEMOGLOBIN 0.5 % (0-3); HCO3 (ACTUAL BICARBONATE) 23.9 MEQ/L (23-27); HEMOBLOGIN CONTENT 14.2 G/DL (14-18); METHEMOGLOBIN 0.5 % (0-3); MODE CMV; O2 CONTENT 18.2 VOL% (18-24); OPERATOR ID 32214; PO2 (O2 TENSION) 60 MMHG (79-93); SAMPLE Arterial; TIDAL VOLUME 450 ML
[2016-11-06 17:18] LABS: WBC (NOT ORDERED) (RFLEX) 0 (0-5)
[2016-11-06 18:07] LABS: ASCORBIC ACID (UR NOT ORDER) 40 (NEG); BILIRUBIN, URINE NEGATIVE (NEG); KETONE, URINE NEGATIVE (NEG); LEUKOCYTE ESTERASE(NOT OR NEG (NEG)
[2016-11-07 04:25] LABS: BASOPHILS 0.4 %; BASOPHILS ABSOLUTE 0.08 10/3/uL (0.0-0.16); EOSINOPHILS 4.4 %; EOSINOPHILS ABSOLUTE 0.88 10/3/uL (0.0-0.53); HEMATOCRIT 42.3 % (40.0-51.0); HEMOGLOBIN 13.1 g/dL (13.6-17.8); IMMATURE GRANULOCYTES 1.2 %; IMMATURE GRANULOCYTES ABSOLUTE 0.23 10/3/uL (0.0-0.11); LYMPHOCYTES 3.7 %; LYMPHOCYTES ABSOLUTE 0.74 10/3/uL (0.67-4.30); MEAN CORPUSCULAR HEMOGLOB 27.6 pg (26.0-34.0); MEAN CORPUSCULAR VOLUME 89.1 fL (80-100); MEAN PLATELET VOLUME 11.5 fL (9.2-13.0); MONOCYTES 6.8 %; MONOCYTES ABSOLUTE 1.35 10/3/uL (0.21-1.20); NEUTROPHILS 83.5 %; NEUTROPHILS ABSOLUTE 16.67 10/3/uL (2.02-8.40); PLATELET COUNT 172 10/3/uL (150-400); RBC DISTRIBUTION WIDTH 16.7 % (12.0-16.0); RED CELL COUNT 4.75 10/6/uL (4.7-6.1)
[2016-11-07 04:26] LABS: MANUAL DIFF NO %
[2016-11-07 04:40] LABS: ALBUMIN 1.6 G/DL (3.5-5.0); ALKALINE PHOSPHATASE 66 U/L (45-117); BUN (BLOOD UREA NITROGEN) 44 MG/DL (6-23); CALCIUM, SERUM 10.5 MG/DL (8.5-10.4); CHLORIDE, SERUM 118 MMOL/L (96-112); CO2 (CARBON DIOXIDE) 24 MMOL/L (24-34); CREATININE 1.33 MG/DL (0.70-1.30); GFR AFRICAN AMERICAN 59 ML/MIN (>=60); GFR NON AFRICAN AMERICAN 51 ML/MIN (>=60); GLUCOSE, SERUM 112 MG/DL (60-99); PHOSPHORUS, SERUM 4.3 MG/DL (2.5-4.5); PREALBUMIN 3.9 MG/DL (17.0-43.0); SGPT(ALT) 53 U/L (5-65); SODIUM, SERUM 153 MMOL/L (135-148); TOTAL PROTEIN 5.1 G/DL (6.0-8.5)
[2016-11-07 04:41] LABS: A/G RATIO 0.5 (0.7-1.9); GLOBULIN 3.5 G/DL (2.5-4.1); POTASSIUM, SERUM 4.5 MMOL/L (3.5-5.3); SGOT(AST) 49 U/L (5-40); TOTAL BILIRUBIN 2.6 MG/DL (0-1.2)
[2016-11-08 03:50] LABS: HEMOGLOBIN 12.5 g/dL (13.6-17.8); MEAN CORPUS HGB CONC 32.1 g/dL (32.0-36.0); MEAN CORPUSCULAR HEMOGLOB 28.3 pg (26.0-34.0); MEAN CORPUSCULAR VOLUME 88.2 fL (80-100); NUCLEATED RED BLOOD CELLS 1.3 /100WBC (0-0); PLATELET COUNT 161 10/3/uL (150-400); RBC DISTRIBUTION WIDTH 17.6 % (12.0-16.0); RED CELL COUNT 4.42 10/6/uL (4.7-6.1); WHITE BLOOD CELLS 23.6 10/3/uL (4.5-10.5)
[2016-11-08 03:52] LABS: MANUAL DIFF YES %
[2016-11-08 06:08] LABS: BAND NEUTROPHILS 3 %; EOSINOPHILS 1 %; EOSINOPHILS ABSOLUTE (CALC) 0.24 10/3/uL (0.0-0.53); LYMPHOCYTES 1 %; LYMPHOCYTES ABSOLUTE (CALC) 0.24 10/3/uL (0.67-4.30); MONOCYTES 3 %; MONOCYTES ABSOLUTE (CALC) 0.71 10/3/uL (0.21-1.20); NEUTROPHILS ABSOLUTE (CALC) 22.42 10/3/uL (2.02-8.40); SEGMENTED NEUTROPHIL (0) 92 %; TOTAL NUCLEATED CELLS 100
[2016-11-08 06:10] LABS: PLATELET ESTIMATE SLT DEC (ADEQUATE); RBC MORPHOLOGY NORM (NORMAL)
[2016-11-08 07:47] LABS: BUN (BLOOD UREA NITROGEN) 63 MG/DL (6-23); CALCIUM, SERUM 10.6 MG/DL (8.5-10.4); CHLORIDE, SERUM 121 MMOL/L (96-112); CO2 (CARBON DIOXIDE) 24 MMOL/L (24-34); CREATININE 1.64 MG/DL (0.70-1.30); GFR AFRICAN AMERICAN 46 ML/MIN (>=60); GFR NON AFRICAN AMERICAN 40 ML/MIN (>=60); GLUCOSE, SERUM 180 MG/DL (60-99); POTASSIUM, SERUM 3.7 MMOL/L (3.5-5.3); SODIUM, SERUM 154 MMOL/L (135-148)
[2016-11-08 12:32] LABS: CREATININE (RANDOM URINE) 89.1 MG/DL; CREATININE, URINE 89.1 MG/DL; MICROALBUMIN, RANDOM URINE 4.8 MG/DL
[2016-11-09 07:18] LABS: ALBUMIN 1.3 G/DL (3.5-5.0); BUN (BLOOD UREA NITROGEN) 80 MG/DL (6-23); CALCIUM, SERUM 10.3 MG/DL (8.5-10.4); CHLORIDE, SERUM 123 MMOL/L (96-112); CO2 (CARBON DIOXIDE) 24 MMOL/L (24-34); CREATININE 2.15 MG/DL (0.70-1.30); GFR AFRICAN AMERICAN 33 ML/MIN (>=60); GFR NON AFRICAN AMERICAN 29 ML/MIN (>=60); GLUCOSE, SERUM 166 MG/DL (60-99); PHOSPHORUS, SERUM 3.5 MG/DL (2.5-4.5); VANCOMYCIN TROUGH 23.8 MCG/ML (10.0-20.0)
[2016-11-09 07:27] LABS: POTASSIUM, SERUM 4.5 MMOL/L (3.5-5.3)
[2016-11-09 07:28] LABS: SODIUM, SERUM 157 MMOL/L (135-148)
[2016-11-09 08:26] LABS: PROCALCITONIN 0.44 ng/mL (<0.5)
[2016-11-09 10:59] LABS: HEMOGLOBIN 13.5 g/dL (13.6-17.8); MEAN CORPUS HGB CONC 30.6 g/dL (32.0-36.0); MEAN CORPUSCULAR HEMOGLOB 27.4 pg (26.0-34.0); MEAN CORPUSCULAR VOLUME 89.5 fL (80-100); MEAN PLATELET VOLUME 12.1 fL (9.2-13.0); PLATELET COUNT 124 10/3/uL (150-400); RBC DISTRIBUTION WIDTH 17.1 % (12.0-16.0); RED CELL COUNT 4.93 10/6/uL (4.7-6.1)
[2016-11-09 11:01] LABS: HEMATOCRIT 44.1 % (40.0-51.0); WHITE BLOOD CELLS 25.1 10/3/uL (4.5-10.5)
[2016-11-09 11:03] LABS: MANUAL DIFF YES %
[2016-11-09 12:11] LABS: ANISOCYTOSIS 1+ (5-10/OIF) (0-5/OIF); BAND NEUTROPHILS 9 %; EOSINOPHILS 1 %; EOSINOPHILS ABSOLUTE (CALC) 0.25 10/3/uL (0.0-0.53); IMMATURE GRANS ABSOLUTE (CALC) 0.25 10/3/uL (0.0-0.11); LYMPHOCYTES 2 %; MACROCYTES 1+ (5-10/OIF) (0-5/OIF); METAMYELOCYTES 1 %; MONOCYTES 5 %; MONOCYTES ABSOLUTE (CALC) 1.26 10/3/uL (0.21-1.20); NEUTROPHILS ABSOLUTE (CALC) 22.84 10/3/uL (2.02-8.40); PLATELET ESTIMATE SLT DEC (ADEQUATE); SEGMENTED NEUTROPHIL (0) 82 %; TOTAL NUCLEATED CELLS 100
[2016-11-09 14:24] LABS: ASCORBIC ACID (UR NOT ORDER) 40 (NEG); BILIRUBIN, URINE NEGATIVE (NEG); KETONE, URINE NEGATIVE (NEG); LEUKOCYTE ESTERASE(NOT OR TRACE (NEG); WBC (NOT ORDERED) (RFLEX) 6 (0-5)
[2016-11-09 21:55] LABS: INTERNATIONAL NORMAL RATI 1.7 UNITS (-); PARTIAL THROMBO TIME 33.1 SEC (22.5-37.2); PROTIME (NOT ORD) 19.6 SEC (12.0-14.5)
[2016-11-09 21:56] LABS: HEMATOCRIT 43.5 % (40.0-51.0); HEMOGLOBIN 12.7 g/dL (13.6-17.8); MEAN CORPUS HGB CONC 29.2 g/dL (32.0-36.0); MEAN CORPUSCULAR HEMOGLOB 27.3 pg (26.0-34.0); MEAN PLATELET VOLUME 12.1 fL (9.2-13.0); PLATELET COUNT 155 10/3/uL (150-400); RBC DISTRIBUTION WIDTH 17.4 % (12.0-16.0); RED CELL COUNT 4.66 10/6/uL (4.7-6.1)
[2016-11-09 21:59] LABS: MANUAL DIFF YES %; MEAN CORPUSCULAR VOLUME 93.3 fL (80-100); WHITE BLOOD CELLS 33.2 10/3/uL (4.5-10.5)
[2016-11-09 22:01] LABS: A/G RATIO 0.3 (0.7-1.9); ALBUMIN 1.3 G/DL (3.5-5.0); BUN (BLOOD UREA NITROGEN) 96 MG/DL (6-23); CALCIUM, SERUM 10.3 MG/DL (8.5-10.4); CHLORIDE, SERUM 118 MMOL/L (96-112); CO2 (CARBON DIOXIDE) 23 MMOL/L (24-34); CPK 771 U/L (0-200); GFR AFRICAN AMERICAN 21 ML/MIN (>=60); GFR NON AFRICAN AMERICAN 18 ML/MIN (>=60); GLOBULIN 3.8 G/DL (2.5-4.1); POTASSIUM, SERUM 5.5 MMOL/L (3.5-5.3); SGOT(AST) 93 U/L (5-40); SGPT(ALT) 134 U/L (5-65); SODIUM, SERUM 154 MMOL/L (135-148); TOTAL PROTEIN 5.1 G/DL (6.0-8.5)
[2016-11-09 22:02] LABS: ALKALINE PHOSPHATASE 109 U/L (45-117); CK-MB 4.4 NG/ML; GLUCOSE, SERUM 228 MG/DL (60-99); PHOSPHORUS, SERUM 5.6 MG/DL (2.5-4.5); TOTAL BILIRUBIN 0.8 MG/DL (0-1.2)
[2016-11-09 22:15] LABS: BAND NEUTROPHILS 14 %; BASOPHILS 1 %; BASOPHILS ABSOLUTE (CALC) 0.33 10/3/uL (0.0-0.16); LYMPHOCYTES 5 %; LYMPHOCYTES ABSOLUTE (CALC) 1.66 10/3/uL (0.67-4.30); MONOCYTES 3 %; NEUTROPHILS ABSOLUTE (CALC) 30.21 10/3/uL (2.02-8.40); SEGMENTED NEUTROPHIL (0) 77 %; TOTAL NUCLEATED CELLS 100
[2016-11-09 22:16] LABS: PLATELET ESTIMATE ADQ (ADEQUATE); POIKILOCYTOSIS 1+ (5-10/OIF) (0-5/OIF)
[2016-11-09 23:45] LABS: PROCALCITONIN 0.91 ng/mL (<0.5)
[2016-11-10 03:58] LABS: BE (BASE EXCESS) -6.7 MEQ/L (0 +/- 2.5); CARBOXYHEMOGLOBIN 0.2 % (0-3); HCO3 (ACTUAL BICARBONATE) 18.6 MEQ/L (23-27); HEMOBLOGIN CONTENT 13.8 G/DL (14-18); INSTRUMENT SERIAL # 35151; METHEMOGLOBIN 0.4 % (0-3); MODE CMV; OPERATOR ID 17370; PCO2 (CO2 TENSION) 37 MMHG (35-45); PO2 (O2 TENSION) 69 MMHG (79-93); SAMPLE Arterial; TIDAL VOLUME 550 ML; pH 7.32 (7.37-7.43)
[2016-11-10 05:36] LABS: HEMOGLOBIN 11.7 g/dL (13.6-17.8); MEAN CORPUS HGB CONC 29.9 g/dL (32.0-36.0); MEAN CORPUSCULAR VOLUME 93.5 fL (80-100); MEAN PLATELET VOLUME 12.2 fL (9.2-13.0); PLATELET COUNT 122 10/3/uL (150-400); RBC DISTRIBUTION WIDTH 17.2 % (12.0-16.0); RED CELL COUNT 4.18 10/6/uL (4.7-6.1)
[2016-11-10 05:39] LABS: HEMATOCRIT 39.1 % (40.0-51.0); MANUAL DIFF YES %; WHITE BLOOD CELLS 30.9 10/3/uL (4.5-10.5)
[2016-11-10 06:06] LABS: BUN (BLOOD UREA NITROGEN) 99 MG/DL (6-23); CALCIUM, SERUM 9.7 MG/DL (8.5-10.4); CHLORIDE, SERUM 119 MMOL/L (96-112); CO2 (CARBON DIOXIDE) 21 MMOL/L (24-34); CREATININE 3.51 MG/DL (0.70-1.30); GFR AFRICAN AMERICAN 18 ML/MIN (>=60); GFR NON AFRICAN AMERICAN 16 ML/MIN (>=60); GLUCOSE, SERUM 207 MG/DL (60-99); PHOSPHORUS, SERUM 6.3 MG/DL (2.5-4.5); POTASSIUM, SERUM 5.3 MMOL/L (3.5-5.3); SODIUM, SERUM 152 MMOL/L (135-148)
[2016-11-10 06:17] LABS: ALBUMIN 1.7 G/DL (3.5-5.0)
[2016-11-10 06:34] LABS: BAND NEUTROPHILS 19 %; LYMPHOCYTES 3 %; LYMPHOCYTES ABSOLUTE (CALC) 0.93 10/3/uL (0.67-4.30); MONOCYTES 3 %; MONOCYTES ABSOLUTE (CALC) 0.93 10/3/uL (0.21-1.20); NEUTROPHILS ABSOLUTE (CALC) 29.05 10/3/uL (2.02-8.40); SEGMENTED NEUTROPHIL (0) 75 %; TOTAL NUCLEATED CELLS 100
[2016-11-10 06:35] LABS: ANISOCYTOSIS 1+ (5-10/OIF) (0-5/OIF); BURR CELLS 1+ (3-10/OIF) (0-2/OIF); PLATELET ESTIMATE SLT DEC (ADEQUATE); POIKILOCYTOSIS 1+ (5-10/OIF) (0-5/OIF); POLYCHROMASIA 1+ (2-5/OIF) (0-1/OIF); TOXIC GRANULATION 1+; VACUOLATED NEUTROPHILES OCC
[2016-11-10 15:46] LABS: CALCIUM, SERUM 9.3 MG/DL (8.5-10.4); CHLORIDE, SERUM 117 MMOL/L (96-112); CO2 (CARBON DIOXIDE) 19 MMOL/L (24-34); GLUCOSE, SERUM 167 MG/DL (60-99); SODIUM, SERUM 150 MMOL/L (135-148)
[2016-11-10 16:02] LABS: BUN (BLOOD UREA NITROGEN) 111 MG/DL (6-23); CREATININE 4.28 MG/DL (0.70-1.30); GFR AFRICAN AMERICAN 14 ML/MIN (>=60); GFR NON AFRICAN AMERICAN 12 ML/MIN (>=60); POTASSIUM, SERUM 6.4 MMOL/L (3.5-5.3)
[2016-11-11 03:30] LABS: HEMATOCRIT 40.1 % (40.0-51.0); HEMOGLOBIN 11.4 g/dL (13.6-17.8); MEAN CORPUSCULAR HEMOGLOB 27.3 pg (26.0-34.0); MEAN CORPUSCULAR VOLUME 95.9 fL (80-100); NUCLEATED RED BLOOD CELLS 0.2 /100WBC (0-0); PLATELET COUNT 90 10/3/uL (150-400); RBC DISTRIBUTION WIDTH 17.4 % (12.0-16.0); RED CELL COUNT 4.18 10/6/uL (4.7-6.1); WHITE BLOOD CELLS 24.7 10/3/uL (4.5-10.5)
[2016-11-11 03:32] LABS: MANUAL DIFF YES %; MEAN CORPUS HGB CONC 28.4 g/dL (32.0-36.0)
[2016-11-11 04:05] LABS: A/G RATIO 0.4 (0.7-1.9); ALBUMIN 1.4 G/DL (3.5-5.0); CHLORIDE, SERUM 110 MMOL/L (96-112); GLOBULIN 3.5 G/DL (2.5-4.1); SODIUM, SERUM 144 MMOL/L (135-148); TOTAL PROTEIN 4.9 G/DL (6.0-8.5)
[2016-11-11 04:14] LABS: ANISOCYTOSIS 1+ (5-10/OIF) (0-5/OIF); BAND NEUTROPHILS 9 %; BURR CELLS 1+ (3-10/OIF) (0-2/OIF); HYPOCHROMIA 1+ (3-10/OIF) (0-2/OIF); IMMATURE GRANS ABSOLUTE (CALC) 0.74 10/3/uL (0.0-0.11); LYMPHOCYTES 10 %; LYMPHOCYTES ABSOLUTE (CALC) 2.47 10/3/uL (0.67-4.30); METAMYELOCYTES 3 %; MONOCYTES 5 %; MONOCYTES ABSOLUTE (CALC) 1.24 10/3/uL (0.21-1.20); NEUTROPHILS ABSOLUTE (CALC) 20.25 10/3/uL (2.02-8.40); PLATELET ESTIMATE DEC (ADEQUATE); SEGMENTED NEUTROPHIL (0) 73 %; TEARDROP SHAPED RBCS FEW (3-10/OIF); TOTAL NUCLEATED CELLS 100; VACUOLATED NEUTROPHILES FEW
[2016-11-11 04:19] LABS: SGOT(AST) 10178 U/L (5-40); SGPT(ALT) 5610 U/L (5-65)
[2016-11-11 04:20] LABS: ALKALINE PHOSPHATASE 86 U/L (45-117); BUN (BLOOD UREA NITROGEN) 126 MG/DL (6-23); CO2 (CARBON DIOXIDE) 14 MMOL/L (24-34); CREATININE 5.48 MG/DL (0.70-1.30); GFR AFRICAN AMERICAN 11 ML/MIN (>=60); GFR NON AFRICAN AMERICAN 9 ML/MIN (>=60); GLUCOSE, SERUM 212 MG/DL (60-99); PHOSPHORUS, SERUM 11.5 MG/DL (2.5-4.5); POTASSIUM, SERUM 7.2 MMOL/L (3.5-5.3); TOTAL BILIRUBIN 1.5 MG/DL (0-1.2)
== END 2016-11-11 10:04 | disposition expired | DRG 163 ==
LOC: ER 09:54 → IMCU 13:26 → SDC/OF 11-04 11:22 → PACU 11-04 11:43 → CCU 11-04 13:54
PROVIDERS: Emergency Medicine; Internal Medicine; Internal Medicine Critical Care Medicine; Internal Medicine Gastroenterology; Physician Assistant Medical; Thoracic Surgery (Cardiothoracic Vascular Surgery)
PROC: 0W9930Z Drainage of Right Pleural Cavity with Drainage Device, Percutaneous Approach (ICD-10-PCS; 2016-10-26)
PROC: 0W9930Z Drainage of Right Pleural Cavity with Drainage Device, Percutaneous Approach (ICD-10-PCS; 2016-10-28)
PROC: 5A1955Z Respiratory Ventilation, Greater than 96 Consecutive Hours (ICD-10-PCS; 2016-10-29)
PROC: 3E0L3GC Introduction of Other Therapeutic Substance into Pleural Cavity, Percutaneous Approach (ICD-10-PCS; 2016-10-29)
PROC: 3E03317 Introduction of Other Thrombolytic into Peripheral Vein, Percutaneous Approach (ICD-10-PCS; 2016-10-29)
PROC: 0DH63UZ Insertion of Feeding Device into Stomach, Percutaneous Approach (ICD-10-PCS; 2016-10-30)
PROC: 3E0L3GC Introduction of Other Therapeutic Substance into Pleural Cavity, Percutaneous Approach (ICD-10-PCS; 2016-10-30)
PROC: 0DH67UZ Insertion of Feeding Device into Stomach, Via Natural or Artificial Opening (ICD-10-PCS; 2016-10-30)
PROC: 3E0G76Z Introduction of Nutritional Substance into Upper GI, Via Natural or Artificial Opening (ICD-10-PCS; 2016-10-30)
PROC: 3E03317 Introduction of Other Thrombolytic into Peripheral Vein, Percutaneous Approach (ICD-10-PCS; 2016-10-30)
PROC: 3E0L3GC Introduction of Other Therapeutic Substance into Pleural Cavity, Percutaneous Approach (ICD-10-PCS; 2016-11-02)
PROC: 3E03317 Introduction of Other Thrombolytic into Peripheral Vein, Percutaneous Approach (ICD-10-PCS; 2016-11-02)
PROC: 0BH17EZ Insertion of Endotracheal Airway into Trachea, Via Natural or Artificial Opening (ICD-10-PCS; 2016-11-04)
PROC: 30233N1 Transfusion of Nonautologous Red Blood Cells into Peripheral Vein, Percutaneous Approach (ICD-10-PCS; 2016-11-04)
PROC: 05H533Z Insertion of Infusion Device into Right Subclavian Vein, Percutaneous Approach (ICD-10-PCS; 2016-11-04)
PROC: 0BDN4ZZ Extraction of Right Pleura, Percutaneous Endoscopic Approach (ICD-10-PCS; principal; 2016-11-04 08:15)
PROC: 02HV33Z Insertion of Infusion Device into Superior Vena Cava, Percutaneous Approach (ICD-10-PCS; 2016-11-06)
PROC: 4A02X4A Measurement of Cardiac Electrical Activity, Guidance, External Approach (ICD-10-PCS; 2016-11-06)
DX: J96.21 Acute and chronic respiratory failure with hypoxia (principal); J69.0 Pneumonitis due to inhalation of food and vomit; N17.0 Acute kidney failure with tubular necrosis; J90 Pleural effusion, not elsewhere classified; R65.21 Severe sepsis with septic shock; R57.0 Cardiogenic shock; G93.41 Metabolic encephalopathy; A41.9 Sepsis, unspecified organism; I50.32 Chronic diastolic (congestive) heart failure; I82.611 Acute embolism and thrombosis of superficial veins of right upper extremity; E87.0 Hyperosmolality and hypernatremia; J98.11 Atelectasis; E46 Unspecified protein-calorie malnutrition; I24.8 Other forms of acute ischemic heart disease; R13.12 Dysphagia, oropharyngeal phase; I11.0 Hypertensive heart disease with heart failure; J44.9 Chronic obstructive pulmonary disease, unspecified; E66.9 Obesity, unspecified; Z51.5 Encounter for palliative care; G47.33 Obstructive sleep apnea (adult) (pediatric); I25.10 Atherosclerotic heart disease of native coronary artery without angina pectoris; E66.09 Other obesity due to excess calories; M10.9 Gout, unspecified; F10.21 Alcohol dependence, in remission; F41.9 Anxiety disorder, unspecified; N40.0 Benign prostatic hyperplasia without lower urinary tract symptoms; Z95.1 Presence of aortocoronary bypass graft; Z86.73 Personal history of transient ischemic attack (TIA), and cerebral infarction without residual deficits; I69.320 Aphasia following cerebral infarction; Z87.891 Personal history of nicotine dependence; Z82.49 Family history of ischemic heart disease and other diseases of the circulatory system; Z99.81 Dependence on supplemental oxygen
CPT/HCPCS: 31720; 32555; 32561; 32562; 36415; 36430; 36569; 36600; 71010; 71250; 74000; 76775; 80048; 80053; 80069; 80202; 81001; 82043; 82140; 82330; 82533; 82550; 82553; 82570; 82803; 82805; 82945; 82947; 82962; 83605; 83615; 83735; 83880; 83935; 83986; 84100; 84132; 84133; 84134; 84145; 84155; 84157; 84295; 84300; 84478; 84484; 85014; 85025; 85610; 85730; 86850; 86900; 86901; 86920; 87015; 87040; 87070; 87075; 87102; 87116; 87205; 87449; 87641; 88112; 88305; 89051; 92610-GN; 93005; 93926; 93971; 93975; 94002; 94003; 94640; 94667; 94668; 94770; 96374; 96375; 99291; A9270-GY; C1751; C8929; C9113; G8996-CN-GN; G8997-CN-GN; G8998-CN-GN; J1940; J2370; J2405; J2543; J2765; J2795; J2930; J2997; J3010; J3370; P9016; P9045; P9047; Q9957